=== PATIENT | female | born 2000 | race Caucasian/White ===

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

== ENCOUNTER 2022-11-10 21:06 | Inpatient (IN) ==
[2022-11-10] MEDS ORDERED: SODIUM CHLORIDE 0.9% 1,000 ML IV ONE (21:17)
[2022-11-10] MEDS ORDERED: ACETAMINOPHEN 325 MG TAB PO STA (21:17)
[2022-11-10 22:35] LABS: Appearance Urine Clear (Clear); Bacteria Urine Automated Negative (Negative); Basophils # (auto) 0.04 K/uL (0-0.2); Basophils % (auto) 0.3 %; Bilirubin Urine Negative (Negative); Blood Urine Trace (Negative); Color Urine Yellow; Eosinophils # (auto) 0.01 K/uL (0-0.50); Eosinophils % (auto) 0.1 %; Epithelial Cell Urine Auto >30 /lpf (0-5); Glucose Urine UA Negative (Negative); Hematocrit (blood only) 44.6 % (37.0-47.0); Hemoglobin 15.6 g/dl (12.0-16.0); Immature Granulocytes # (auto) 0.08 K/uL (0.01-0.20); Immature Granulocytes % (auto) 0.5 %; Ketones Urine Trace (Negative); Leukocyte Esterase Urine Negative (Negative); Lymphocytes # (auto) 0.73 K/uL (1.2-3.4); Lymphocytes % (auto) 4.6 %; Mean Corpuscular Hemoglobin 33.5 pg (25.0-34.0); Mean Corpuscular Volume 95.7 fL (80.0-100.0); Mean Platelet Volume 9.7 fL (9.4-12.4); Monocytes # (auto) 0.99 K/uL (0.11-0.59); Monocytes % (auto) 6.3 %; Neutrophils # (auto) 13.98 K/uL (1.40-6.50); Neutrophils % (auto) 88.2 %; Nitrite Urine Negative (Negative); Platelet Count 286 K/uL (130-400); Protein Urine 1+ (Negative); RBC Urine Automated 0-4 /hpf (0-4); RDW Coefficient of Variation 11.4 % (11.5-14.5); Red Blood Count 4.66 M/uL (4.20-5.40); Specific Gravity Urine 1.027 (1.000-1.030); Urobilinogen Urine Negative (Negative); White Blood Count 15.83 K/ul (4.8-10.8); pH Urine 7.5 (4.5-7.5)
[2022-11-10 22:53] LABS: Albumin Globulin Ratio 1.5 (0.9-2); Albumin Level 5.1 gm/dl (3.4-5.0); BUN Creatinine Ratio 10.7 (10-20); Bilirubin,Total 0.5 mg/dl (0.2-1.0); Calcium 10.1 mg/dl (8.5-10.1); Creatinine Clr Calc Pharmacy 100.5 ml/min; Est GFR (Non-African American) 114.7 ml/min; Globulin 3.3 gm/dl (2.5-4.0); Potassium 3.8 mmol/L (3.5-5.1); Total Protein 8.4 gm/dl (6.0-8.3)
[2022-11-10 23:04] LABS: Monotest Negative (Negative); Pregnancy Test, Serum Negative (Negative)
[2022-11-10] MEDS ORDERED: OPTIRAY 320 500ml IV ONE (23:25)
[2022-11-10] MEDS ORDERED: SODIUM CHLORIDE 0.9% 1000ML 1,000 ML IV ONE (23:27)
[2022-11-10 23:55] LABS: Adenovirus PCR Not Detected (NotDetected); Bordetella parapertussis PCR Not Detected (NotDetected); Bordetella pertussis PCR Not Detected (NotDetected); Chlamydia pneumoniae PCR Not Detected (NotDetected); Coronavirus 229E PCR Not Detected (NotDetected); Coronavirus CoV-2 (COVID19)PCR Not Detected (NotDetected); Coronavirus HKU1 PCR Not Detected (NotDetected); Coronavirus NL63 PCR Not Detected (NotDetected); Coronavirus OC43PCR Not Detected (NotDetected); Human Metapneumovirus PCR Not Detected (NotDetected); Influenza A PCR Not Detected (NotDetected); Influenza B PCR Not Detected (NotDetected); Mycoplasma pneumoniae PCR Not Detected (NotDetected); Parainfluenza Virus 1 PCR Not Detected (NotDetected); Parainfluenza Virus 2 PCR Not Detected (NotDetected); Parainfluenza Virus 3 PCR Not Detected (NotDetected); Parainfluenza Virus 4 PCR Not Detected (NotDetected); Respiratory Syncytial VirusPCR Not Detected (NotDetected); Rhinovirus/Enterovirus PCR Not Detected (NotDetected)
--- NOTE | 2022-11-11 00:23 | Emergency Department Note ---
Impression & Plan Fever, Headache, Myalgia ED Provider Note ED Provider Note NAME: ARCADIO ROTHMAN AGE:22 SEX: Female : 2000 ARRIVES VIA: Private vehicle INFORMANT: Patient ED PROVIDER(s): Rossy Couch DO CHIEF COMPLAINT: Fever, headache, myalgias HPI: This is a 22-year-old female presents emergency department complaining of fevers, myalgias, and headache which began yesterday. Patient states headache is frontal and posterior. No history of migraines. No recent trauma or injury. Patient states she has had decreased appetite although no overt vomiting or diarrhea. She states she feels "achy all over". She states she has been trying to take Tylenol and ibuprofen with minimal improvement of symptoms. Patient denies any known sick contacts although states she works around the public daily. Patient denies nasal congestion, rhinorrhea, or cough. She does admit to a mild sore throat. She does admit to chest pain but denies abdominal pain. Denies any rash or sores. Patient states she did take a home COVID test but it was negative. PAST MEDICAL HISTORY:See Below PAST SURGICAL HISTORY:See Below FAMILY HISTORY:See Below SOCIAL HISTORY:See Below HOME MEDICATIONS:See Below ALLERGIES:See Below VITALS:See Below PHYSICAL EXAMINATION: GENERAL: alert, unwell appearing, well nourished, no distress, non-toxic EYE EXAM: normal conjunctiva, PERRL and EOM's grossly intact, no nystagmus OROPHARYNX: no exudate, no erythema, lips, buccal mucosa, and tongue normal and mucous membranes are moist NECK: supple, no nuchal rigidity, no adenopathy, non-tender, FROM LUNGS: Clear to auscultation. Normal chest wall mechanics, no w/r/r HEART: no murmurs, S1 normal and S2 normal ABDOMEN: abdomen soft, non-tender, normo-active bowel sounds, no masses, no rebound or guarding. BACK: Back is symmetrical on inspection and there is no deformity, no midline tenderness, no CVA tenderness. SKIN: no rashes, petechiae, orbruising UPPER EXTREMITIES: upper extremities are grossly normal. FROM, nml pulses b/l. LOWER EXTREMITIES: No pitting edema. FROM, nml pulses b/l. NEURO EXAM: Normal sensorium, cranial nerves II-XII grossly intact, normal speech, no facial droop,nogross weakness of arms, no gross weakness of legs. Gross sensation intact. No ataxia. Vital Signs: reviewed and remarkable Differential Diagnosis: Viral syndrome, strep pharyngitis, tonsillitis, mononucleosis, meningitis, sinusitis, bronchitis, pneumonia, as well as other pathologies. MEDICAL DECISION MAKING: This is a 22-year-old female presents emergency department due to concern for fever, headache, myalgias. Patient was noted to be febrile and tacky on arrival. She was ill-appearing at bedside. Labs drawn and sent, IV established, patient started on IV fluids. She was given Tylenol by nursing staff just prior to my evaluation. Additional medications added. Patient received several liters of IV fluids while in the emergency room. Patient's labs are reassuring, nasal swab negative, UA unremarkable, strep swab negative. We did discuss given constellation of symptoms possible evaluation for meningitis/encephalitis with LP. After discussion at bedside, patient signed consent form and wished to proceed with the procedure. Please see procedure note for additional details. CSF was reassuring. Patient with persistent headache and myalgias despite multiple doses of pain medication and multiple liters of IV fluids. Due to persistent symptoms we did discuss options for disposition. Case discussed with hospitalist for additional evaluation and management including treatment of her headache. Patient has no contributory family history. Patient was first seen and observation began at 2114 and was necessary in order to evaluate symptoms and etiology of complaints, provide multiple liters of IV fluids and multiple doses of pain and nausea medication. Upon re-evaluation, 6 hours of observation revealed that the patient should be admitted. Discharge from observation at 0430. Consultation(s): 0428: Discussed with Dr. Zamora. ER Treatment Provided: See below 0102: After discussion of results and patient's persistent symptoms, we did discuss lumbar puncture. After discussion of risk versus benefits, patient in agreement and would like to proceed with procedure. Consent form signed at bedside. Diagnostics Interpreted By Me: -ECG: Sinus tachycardia at 115, normal axis, normal QRS and QTc, no acute ST/T wave changes -Cardiac Monitoring: An order was placed for continuous cardiac monitoring. The monitor shows a rate of 102 with sinus tachycardia rhythm. -Laboratory studies: As stated above and show below. -Imaging studies: [] Triage Nursing Note Reviewed Prior/Outside Records Reviewed Procedures: PRIOR TO PROCEDURE: The patient was evaluated prior to the procedure. The patient was identified and the procedure verified as lumbar puncture. A Time Out was held and the following information confirmed. Verify Correct Patient: Yes Verify Correct Site: Yes Verify Correct Procedure: Yes Verify Correct Position: Yes Indication: SAH/meningitis Discussion was held with the patient concerning lumbar puncture. The risks and benefits were explained with possible risks to include local back pain, headache, bleeding, infection, neurological sequelea (herniation and/or paralysis), and tract formation/subarachnoid epidermal cyst. The patient signed consent form. PROCEDURE NOTE: Patient was placed in the sitting position with hips, knees and neck flexed. Landmarks identified. Patient prepped and draped in usual sterile fashion. Skin anesthetized with 1% lidocaine. Lumbar puncture performed using a 3.5inch 22 gauge needle with stylet. Atraumatic tap was obtained on the 1st attempt. Opening pressure was not performed. Approximately 4 milliliters of clear fluid were removed in usual manner without any problems. Closing pressure was not recorded. Stylet replaced and needle withdrawn. CSF was sent to lab for analysis. Patient tolerated the procedure well. The patient was provided with written and verbal instructions. 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 Beliefs That Will Affect Care: None Current Living Situation: Family Other Information That Helps Us Care for You: No Feels Safe at Home: Yes Safety Concerns: Feels Safe At This Time Assistive Devices: Hearing Aid - Bilateral Allergies Allergies Allergy/AdvReac Type Severity Reaction Status Date / Time amoxicillin [From Augmentin] Allergy Intermediate rash, Verified 11/10/22 23:13 tongue swelling, it was "hard to breathe" clavulanic acid Allergy Intermediate rash, Verified 11/10/22 23:13 [From Augmentin] tongue swelling, it was "hard to breathe" Penicillins Allergy Intermediate Hives Verified 11/10/22 23:13 sulfamethoxazole Allergy Intermediate Rash Verified 11/10/22 23:13 [From Bactrim] trimethoprim [From Bactrim] Allergy Intermediate Rash Verified 11/10/22 23:13 Home Meds Home Medications Medication Instructions Recorded Confirmed norethindrone (contraceptive) 0.35 0.35 mg PO DAILY 11/10/22 11/10/22 mg tablet Results & Data (ED) Vital Signs Vital Signs - 24 hr 11/11/22 04:36 Pulse Rate [Right Finger] 77 Respiratory Rate 16 Blood Pressure [Right Arm] 125/79 Blood Pressure Mean [Right Arm] 94 Pulse Oximetry 99 Laboratory Data 11/10/22 22:10 11/10/22 22:10 Lab Results 11/10/22 11/10/22 11/10/22 Range/Units 22:10 22:10 22:10 WBC 15.83 H (4.8-10.8) K/ul RBC 4.66 (4.20-5.40) M/uL Hgb 15.6 (12.0-16.0) g/dl Hct 44.6 (37.0-47.0) % MCV 95.7 (80.0-100.0) fL MCH 33.5 (25.0-34.0) pg MCHC 35.0 (32.0-36.0) g/dL RDW Std Deviation 40.0 (36.4-46.3) fL RDW Coeff of Sade 11.4 L (11.5-14.5) % Plt Count 286 (130-400) K/uL MPV 9.7 (9.4-12.4) fL Immature Gran % (Auto) 0.5 % Neut % (Auto) 88.2 % Lymph % (Auto) 4.6 % [place] % (Auto) 6.3 % Eos % (Auto) 0.1 % Baso % (Auto) 0.3 % Neut # (Auto) 13.98 H (1.40-6.50) K/uL Lymph # (Auto) 0.73 L (1.2-3.4) K/uL [place] # (Auto) 0.99 H (0.11-0.59) K/uL Eos # (Auto) 0.01 (0-0.50) K/uL Baso # (Auto) 0.04 (0-0.2) K/uL Immature Gran # (Auto) 0.08 (0.01-0.20) K/uL Sodium 136 (136-145) mmol/L Potassium 3.8 (3.5-5.1) mmol/L Chloride 103 (98-107) mmol/L Carbon Dioxide 26 (21-32) mmol/L Anion Gap 7 (3-11) BUN 8 (6-23) mg/dl Creatinine 0.75 (0.6-1.2) mg/dl Est Cr Clr Drug Dosing 100.5 ml/min Est GFR ( Amer) 133.0 ml/min Est GFR (Non-Af Amer) 114.7 ml/min BUN/Creatinine Ratio 10.7 (10-20) Glucose 106 H (70-99(Fasting)) mg/dl Calcium 10.1 (8.5-10.1) mg/dl Total Bilirubin 0.5 (0.2-1.0) mg/dl AST 17 (13-39) U/L ALT 11 (7-52) U/L Alkaline Phosphatase 73 (34-104) U/L Total Creatine Kinase 38 (26-192) U/L Total Protein 8.4 H (6.0-8.3) gm/dl Albumin 5.1 H (3.4-5.0) gm/dl Globulin 3.3 (2.5-4.0) gm/dl Albumin/Globulin Ratio 1.5 (0.9-2) Procalcitonin (0-0.5) ng/ml HCG, Qual (Negative) Urine Color Yellow Urine Appearance Clear (Clear) Urine pH 7.5 (4.5-7.5) Ur Specific Hope 1.027 (1.000-1.030) Urine Protein 1+ H (Negative) Urine Glucose (UA) Negative (Negative) Urine Ketones Trace H (Negative) Urine Blood Trace H (Negative) Urine Nitrite Negative (Negative) Urine Bilirubin Negative (Negative) Urine Urobilinogen Negative (Negative) Ur Leukocyte Esterase Negative (Negative) Urine WBC (Auto) 1-5 (0-5) /hpf Urine RBC (Auto) 0-4 (0-4) /hpf U Hyaline Cast (Auto) 1-5 (0-5) /lpf U Epithel Cells (Auto) >30 H (0-5) /lpf Urine Bacteria (Auto) Negative (Negative) Fluid Comment CSF Appearance CSF Color Xanthrochromic CSF WBC (0-5) CSF RBC (0-) CSF Cell Count Tube # CSF Mononuclear WBCs % % CSF Polynuclear WBCs % % CSF Chemistry Tube # CSF Glucose (40-70) mg/dl CSF Total Protein (15-45) mg/dl CSF C.neoform/gat PCR (NotDetected) CSF CMV DNA (PCR) (NotDetected) CSF Enterovirus (PCR) (NotDetected) CSF E. coli K1 (PCR) (NotDetected) CSF H. influenzae (PCR) (NotDetected) CSF HSV I (PCR) (NotDetected) CSF HSV II (PCR) (NotDetected) CSF HHV 6 (PCR) (NotDetected) CSF L.monocytogenes PCR (NotDetected) CSF N. meningitidis PCR (NotDetected) CSF Parechovirus (PCR) (NotDetected) CSF S. agalactiae (PCR) (NotDetected) CSF S. pneumoniae (PCR) (NotDetected) CSF VZV DNA (PCR) (NotDetected) Adenovirus (PCR) (NotDetected) B. pertussis DNA (PCR) (NotDetected) B.parapertussis DNA PCR (NotDetected) C. pneumoniae DNA (PCR) (NotDetected) Coronavirus OC43 (PCR) (NotDetected) Coronavirus HKU1 (PCR) (NotDetected) Coronavirus 229E (PCR) (NotDetected) SARS-CoV-2 (PCR) (NotDetected) Coronavirus NL63 (PCR) (NotDetected) Monoscreen (Negative) Human Metapneumovir PCR (NotDetected) Influenza Type A (PCR) (NotDetected) Influenza Type B (PCR) (NotDetected) M. pneumoniae (PCR) (NotDetected) Parainfluenza 1 (PCR) (NotDetected) Parainfluenza 2 (PCR) (NotDetected) Parainfluenza 3 (PCR) (NotDetected) Parainfluenza 4 (PCR) (NotDetected) RSV (PCR) (NotDetected) Entero/Rhino (PCR) (NotDetected) Group A Strep (PCR) (NotDetected) 11/10/22 11/10/22 11/10/22 Range/Units 22:10 22:10 22:47 WBC (4.8-10.8) K/ul RBC (4.20-5.40) M/uL Hgb (12.0-16.0) g/dl Hct (37.0-47.0) % MCV (80.0-100.0) fL MCH (25.0-34.0) pg MCHC (32.0-36.0) g/dL RDW Std Deviation (36.4-46.3) fL RDW Coeff of Sade (11.5-14.5) % Plt Count (130-400) K/uL MPV (9.4-12.4) fL Immature Gran % (Auto) % Neut % (Auto) % Lymph % (Auto) % [place] % (Auto) % Eos % (Auto) % Baso % (Auto) % Neut # (Auto) (1.40-6.50) K/uL Lymph # (Auto) (1.2-3.4) K/uL [place] # (Auto) (0.11-0.59) K/uL Eos # (Auto) (0-0.50) K/uL Baso # (Auto) (0-0.2) K/uL Immature Gran # (Auto) (0.01-0.20) K/uL Sodium (136-145) mmol/L Potassium (3.5-5.1) mmol/L Chloride (98-107) mmol/L Carbon Dioxide (21-32) mmol/L Anion Gap (3-11) BUN (6-23) mg/dl Creatinine (0.6-1.2) mg/dl Est Cr Clr Drug Dosing ml/min Est GFR ( Amer) ml/min Est GFR (Non-Af Amer) ml/min BUN/Creatinine Ratio (10-20) Glucose (70-99(Fasting)) mg/dl Calcium (8.5-10.1) mg/dl Total Bilirubin (0.2-1.0) mg/dl AST (13-39) U/L ALT (7-52) U/L Alkaline Phosphatase (34-104) U/L Total Creatine Kinase (26-192) U/L Total Protein (6.0-8.3) gm/dl Albumin (3.4-5.0) gm/dl Globulin (2.5-4.0) gm/dl Albumin/Globulin Ratio (0.9-2) Procalcitonin 0.13 (0-0.5) ng/ml HCG, Qual Negative (Negative) Urine Color Urine Appearance (Clear) Urine pH (4.5-7.5) Ur Specific Hope (1.000-1.030) Urine Protein (Negative) Urine Glucose (UA) (Negative) Urine Ketones (Negative) Urine Blood (Negative) Urine Nitrite (Negative) Urine Bilirubin (Negative) Urine Urobilinogen (Negative) Ur Leukocyte Esterase (Negative) Urine WBC (Auto) (0-5) /hpf Urine RBC (Auto) (0-4) /hpf U Hyaline Cast (Auto) (0-5) /lpf U Epithel Cells (Auto) (0-5) /lpf Urine Bacteria (Auto) (Negative) Fluid Comment CSF Appearance CSF Color Xanthrochromic CSF WBC (0-5) CSF RBC (0-) CSF Cell Count Tube # CSF Mononuclear WBCs % % CSF Polynuclear WBCs % % CSF Chemistry Tube # CSF Glucose (40-70) mg/dl CSF Total Protein (15-45) mg/dl CSF C.neoform/gat PCR (NotDetected) CSF CMV DNA (PCR) (NotDetected) CSF Enterovirus (PCR) (NotDetected) CSF E. coli K1 (PCR) (NotDetected) CSF H. influenzae (PCR) (NotDetected) CSF HSV I (PCR) (NotDetected) CSF HSV II (PCR) (NotDetected) CSF HHV 6 (PCR) (NotDetected) CSF L.monocytogenes PCR (NotDetected) CSF N. meningitidis PCR (NotDetected) CSF Parechovirus (PCR) (NotDetected) CSF S. agalactiae (PCR) (NotDetected) CSF S. pneumoniae (PCR) (NotDetected) CSF VZV DNA (PCR) (NotDetected) Adenovirus (PCR) Not Detected (NotDetected) B. pertussis DNA (PCR) Not Detected (NotDetected) B.parapertussis DNA PCR Not Detected (NotDetected) C. pneumoniae DNA (PCR) Not Detected (NotDetected) Coronavirus OC43 (PCR) Not Detected (NotDetected) Coronavirus HKU1 (PCR) Not Detected (NotDetected) Coronavirus 229E (PCR) Not Detected (NotDetected) SARS-CoV-2 (PCR) Not Detected (NotDetected) Coronavirus NL63 (PCR) Not Detected (NotDetected) Monoscreen Negative (Negative) Human Metapneumovir PCR Not Detected (NotDetected) Influenza Type A (PCR) Not Detected (NotDetected) Influenza Type B (PCR) Not Detected (NotDetected) M. pneumoniae (PCR) Not Detected (NotDetected) Parainfluenza 1 (PCR) Not Detected (NotDetected) Parainfluenza 2 (PCR) Not Detected (NotDetected) Parainfluenza 3 (PCR) Not Detected (NotDetected) Parainfluenza 4 (PCR) Not Detected (NotDetected) RSV (PCR) Not Detected (NotDetected) Entero/Rhino (PCR) Not Detected (NotDetected) Group A Strep (PCR) (NotDetected) 11/11/22 11/11/22 11/11/22 Range/Units 01:40 01:40 01:40 WBC (4.8-10.8) K/ul RBC (4.20-5.40) M/uL Hgb (12.0-16.0) g/dl Hct (37.0-47.0) % MCV (80.0-100.0) fL MCH (25.0-34.0) pg MCHC (32.0-36.0) g/dL RDW Std Deviation (36.4-46.3) fL RDW Coeff of Sade (11.5-14.5) % Plt Count (130-400) K/uL MPV (9.4-12.4) fL Immature Gran % (Auto) % Neut % (Auto) % Lymph % (Auto) % [place] % (Auto) % Eos % (Auto) % Baso % (Auto) % Neut # (Auto) (1.40-6.50) K/uL Lymph # (Auto) (1.2-3.4) K/uL [place] # (Auto) (0.11-0.59) K/uL Eos # (Auto) (0-0.50) K/uL Baso # (Auto) (0-0.2) K/uL Immature Gran # (Auto) (0.01-0.20) K/uL Sodium (136-145) mmol/L Potassium (3.5-5.1) mmol/L Chloride (98-107) mmol/L Carbon Dioxide (21-32) mmol/L Anion Gap (3-11) BUN (6-23) mg/dl Creatinine (0.6-1.2) mg/dl Est Cr Clr Drug Dosing ml/min Est GFR ( Amer) ml/min Est GFR (Non-Af Amer) ml/min BUN/Creatinine Ratio (10-20) Glucose (70-99(Fasting)) mg/dl Calcium (8.5-10.1) mg/dl Total Bilirubin (0.2-1.0) mg/dl AST (13-39) U/L ALT (7-52) U/L Alkaline Phosphatase (34-104) U/L Total Creatine Kinase (26-192) U/L Total Protein (6.0-8.3) gm/dl Albumin (3.4-5.0) gm/dl Globulin (2.5-4.0) gm/dl Albumin/Globulin Ratio (0.9-2) Procalcitonin (0-0.5) ng/ml HCG, Qual (Negative) Urine Color Urine Appearance (Clear) Urine pH (4.5-7.5) Ur Specific Hope (1.000-1.030) Urine Protein (Negative) Urine Glucose (UA) (Negative) Urine Ketones (Negative) Urine Blood (Negative) Urine Nitrite (Negative) Urine Bilirubin (Negative) Urine Urobilinogen (Negative) Ur Leukocyte Esterase (Negative) Urine WBC (Auto) (0-5) /hpf Urine RBC (Auto) (0-4) /hpf U Hyaline Cast (Auto) (0-5) /lpf U Epithel Cells (Auto) (0-5) /lpf Urine Bacteria (Auto) (Negative) Fluid Comment CSF Appearance Clear CSF Color Colorless Xanthrochromic No xanthochromia CSF WBC 0 (0-5) CSF RBC 0 (0-) CSF Cell Count Tube # 3 CSF Mononuclear WBCs % % CSF Polynuclear WBCs % % CSF Chemistry Tube # 1 CSF Glucose 73 H (40-70) mg/dl CSF Total Protein 26.8 (15-45) mg/dl CSF C.neoform/gat PCR Not Detected (NotDetected) CSF CMV DNA (PCR) Not Detected (NotDetected) CSF Enterovirus (PCR) Not Detected (NotDetected) CSF E. coli K1 (PCR) Not Detected (NotDetected) CSF H. influenzae (PCR) Not Detected (NotDetected) CSF HSV I (PCR) Not Detected (NotDetected) CSF HSV II (PCR) Not Detected (NotDetected) CSF HHV 6 (PCR) Not Detected (NotDetected) CSF L.monocytogenes PCR Not Detected (NotDetected) CSF N. meningitidis PCR Not Detected (NotDetected) CSF Parechovirus (PCR) Not Detected (NotDetected) CSF S. agalactiae (PCR) Not Detected (NotDetected) CSF S. pneumoniae (PCR) Not Detected (NotDetected) CSF VZV DNA (PCR) Not Detected (NotDetected) Adenovirus (PCR) (NotDetected) B. pertussis DNA (PCR) (NotDetected) B.parapertussis DNA PCR (NotDetected) C. pneumoniae DNA (PCR) (NotDetected) Coronavirus OC43 (PCR) (NotDetected) Coronavirus HKU1 (PCR) (NotDetected) Coronavirus 229E (PCR) (NotDetected) SARS-CoV-2 (PCR) (NotDetected) Coronavirus NL63 (PCR) (NotDetected) Monoscreen (Negative) Human Metapneumovir PCR (NotDetected) Influenza Type A (PCR) (NotDetected) Influenza Type B (PCR) (NotDetected) M. pneumoniae (PCR) (NotDetected) Parainfluenza 1 (PCR) (NotDetected) Parainfluenza 2 (PCR) (NotDetected) Parainfluenza 3 (PCR) (NotDetected) Parainfluenza 4 (PCR) (NotDetected) RSV (PCR) (NotDetected) Entero/Rhino (PCR) (NotDetected) Group A Strep (PCR) (NotDetected) 11/11/22 Range/Units 03:25 WBC (4.8-10.8) K/ul RBC (4.20-5.40) M/uL Hgb (12.0-16.0) g/dl Hct (37.0-47.0) % MCV (80.0-100.0) fL MCH (25.0-34.0) pg MCHC (32.0-36.0) g/dL RDW Std Deviation (36.4-46.3) fL RDW Coeff of Sade (11.5-14.5) % Plt Count (130-400) K/uL MPV (9.4-12.4) fL Immature Gran % (Auto) % Neut % (Auto) % Lymph % (Auto) % [place] % (Auto) % Eos % (Auto) % Baso % (Auto) % Neut # (Auto) (1.40-6.50) K/uL Lymph # (Auto) (1.2-3.4) K/uL [place] # (Auto) (0.11-0.59) K/uL Eos # (Auto) (0-0.50) K/uL Baso # (Auto) (0-0.2) K/uL Immature Gran # (Auto) (0.01-0.20) K/uL Sodium (136-145) mmol/L Potassium (3.5-5.1) mmol/L Chloride (98-107) mmol/L Carbon Dioxide (21-32) mmol/L Anion Gap (3-11) BUN (6-23) mg/dl Creatinine (0.6-1.2) mg/dl Est Cr Clr Drug Dosing ml/min Est GFR ( Amer) ml/min Est GFR (Non-Af Amer) ml/min BUN/Creatinine Ratio (10-20) Glucose (70-99(Fasting)) mg/dl Calcium (8.5-10.1) mg/dl Total Bilirubin (0.2-1.0) mg/dl AST (13-39) U/L ALT (7-52) U/L Alkaline Phosphatase (34-104) U/L Total Creatine Kinase (26-192) U/L Total Protein (6.0-8.3) gm/dl Albumin (3.4-5.0) gm/dl Globulin (2.5-4.0) gm/dl Albumin/Globulin Ratio (0.9-2) Procalcitonin (0-0.5) ng/ml HCG, Qual (Negative) Urine Color Urine Appearance (Clear) Urine pH (4.5-7.5) Ur Specific Hope (1.000-1.030) Urine Protein (Negative) Urine Glucose (UA) (Negative) Urine Ketones (Negative) Urine Blood (Negative) Urine Nitrite (Negative) Urine Bilirubin (Negative) Urine Urobilinogen (Negative) Ur Leukocyte Esterase (Negative) Urine WBC (Auto) (0-5) /hpf Urine RBC (Auto) (0-4) /hpf U Hyaline Cast (Auto) (0-5) /lpf U Epithel Cells (Auto) (0-5) /lpf Urine Bacteria (Auto) (Negative) Fluid Comment CSF Appearance CSF Color Xanthrochromic CSF WBC (0-5) CSF RBC (0-) CSF Cell Count Tube # CSF Mononuclear WBCs % % CSF Polynuclear WBCs % % CSF Chemistry Tube # CSF Glucose (40-70) mg/dl CSF Total Protein (15-45) mg/dl CSF C.neoform/gat PCR (NotDetected) CSF CMV DNA (PCR) (NotDetected) CSF Enterovirus (PCR) (NotDetected) CSF E. coli K1 (PCR) (NotDetected) CSF H. influenzae (PCR) (NotDetected) CSF HSV I (PCR) (NotDetected) CSF HSV II (PCR) (NotDetected) CSF HHV 6 (PCR) (NotDetected) CSF L.monocytogenes PCR (NotDetected) CSF N. meningitidis PCR (NotDetected) CSF Parechovirus (PCR) (NotDetected) CSF S. agalactiae (PCR) (NotDetected) CSF S. pneumoniae (PCR) (NotDetected) CSF VZV DNA (PCR) (NotDetected) Adenovirus (PCR) (NotDetected) B. pertussis DNA (PCR) (NotDetected) B.parapertussis DNA PCR (NotDetected) C. pneumoniae DNA (PCR) (NotDetected) Coronavirus OC43 (PCR) (NotDetected) Coronavirus HKU1 (PCR) (NotDetected) Coronavirus 229E (PCR) (NotDetected) SARS-CoV-2 (PCR) (NotDetected) Coronavirus NL63 (PCR) (NotDetected) Monoscreen (Negative) Human Metapneumovir PCR (NotDetected) Influenza Type A (PCR) (NotDetected) Influenza Type B (PCR) (NotDetected) M. pneumoniae (PCR) (NotDetected) Parainfluenza 1 (PCR) (NotDetected) Parainfluenza 2 (PCR) (NotDetected) Parainfluenza 3 (PCR) (NotDetected) Parainfluenza 4 (PCR) (NotDetected) RSV (PCR) (NotDetected) Entero/Rhino (PCR) (NotDetected) Group A Strep (PCR) NOT DETECTED (NotDetected) Administered Medications Acetaminophen (Acetaminophen 325 Mg Tab) 650 mg PO Q4H PRN PRN Reason: pain/fever Stop: 12/11/22 06:31 Last Admin: 11/11/22 15:48 Dose: 650 mg Documented By: KEEGAN Sodium Chloride (Nss 1000ml) 1,000 mls @ 100 mls/hr IV .Q10H ROSETTA Stop: 12/11/22 06:31 Last Admin: 11/12/22 00:41 Dose: 100 mls/hr Documented By: Infusion: 11/12/22 00:41 Dose: 100 mls/hr Documented By: Admin: 11/11/22 15:48 Dose: 100 mls/hr Documented By: Infusion: 11/11/22 15:47 Dose: 0 mls/hr Documented By: Admin: 11/11/22 07:32 Dose: 100 mls/hr Documented By: DANY Discontinued Medications Acetaminophen (Acetaminophen 325 Mg Tab) 650 mg PO NOW STA Stop: 11/10/22 21:18 Last Admin: 11/10/22 22:00 Dose: 650 mg Documented By: CLEMENTE Dexamethasone Sodium Phosphate (DexamethasonePf 10 Mg/Ml Vial) 10 mg IV NOW ONE Stop: 11/11/22 03:40 Last Admin: 11/11/22 03:49 Dose: 10 mg Documented By: OSWALDO Diphenhydramine HCl (Diphenhydramine 50 Mg/Ml Vial) 12.5 mg IV NOW STA Stop: 11/11/22 04:21 Last Admin: 11/11/22 04:28 Dose: 12.5 mg Documented By: OSWALDO Sodium Chloride (Nss) 1,000 mls @ 999 mls/hr IV .Q1H1M ONE Stop: 11/10/22 22:17 Last Infusion: 11/10/22 23:36 Dose: 0 mls/hr Documented By: Admin: 11/10/22 22:30 Dose: 999 mls/hr Documented By: MIS Sodium Chloride (Nss 1000ml) 1,000 mls @ 999 mls/hr IV .Q1H1M ONE Stop: 11/11/22 00:27 Last Infusion: 11/11/22 00:52 Dose: 0 mls/hr Documented By: Admin: 11/10/22 23:38 Dose: 999 mls/hr Documented By: OSWALDO Sodium Chloride (Nss 1000ml) 1,000 mls @ 125 mls/hr IV .Q8H ROSETTA Stop: 12/11/22 02:44 Last Infusion: 11/11/22 07:32 Dose: 0 mls/hr Documented By: Admin: 11/11/22 02:47 Dose: 125 mls/hr Documented By: OSWALDO Acetaminophen (Ofirmev) 1,000 mg in 100 mls @ 400 mls/hr IV NOW STA Stop: 11/11/22 02:58 Last Infusion: 11/11/22 03:07 Dose: 0 mls/hr Documented By: Admin: 11/11/22 02:47 Dose: 400 mls/hr Documented By: OSWALDO Magnesium Sulfate/Dextrose (Magnesium Sulfate / D5w) 1 gm in 100 mls @ 100 mls/hr IV NOW STA Stop: 11/11/22 04:38 Last Infusion: 11/11/22 04:51 Dose: 0 mls/hr Documented By: Admin: 11/11/22 03:49 Dose: 100 mls/hr Documented By: OSWALDO Prochlorperazine (Compazine) 1 mls @ 1 mls/min IV ONE ONE Stop: 11/11/22 04:21 Last Admin: 11/11/22 04:29 Dose: 1 mls/min Documented By: OSWALDO Ioversol (Optiray 320 500ml) 113 ml IV ONCE ONE Stop: 11/10/22 23:26 Last Admin: 11/10/22 23:26 Dose: 113 ml Documented By: RACHAEL Ketorolac Tromethamine (Ketorolac Tromethamine 15 Mg/Ml Vial) 10 mg IV NOW ONE Stop: 11/11/22 00:29 Last Admin: 11/11/22 00:37 Dose: 10 mg Documented By: OSWALDO Lidocaine/Epinephrine (Lidocaine 1%/Epinephrine 1:100,000 50 Ml Vial) 20 ml INFIL NOW ONE Stop: 11/11/22 01:02 Last Admin: 11/11/22 01:48 Dose: 20 ml Documented By: GURJIT Morphine Sulfate (Morphine Sulfate 2 Mg/Ml Carp) 2 mg IV NOW STA Stop: 11/11/22 04:21 Last Admin: 11/11/22 04:28 Dose: 2 mg Documented By: OSWALDO Imaging Data Radiologist's Impression: CTA head: No intracranial aneurysm. No large vessel stenosis or occlusion. Radiologist: Yeyo Calderon MD CT Head: No ICH, mass effect or edema. No evidence of acute cortical stroke. Visualized sinuses and mastoid air cells are clear. Radiologist: Yeyo Calderon MD CTA Neck: No evidence for carotid or vertebral artery stenosis, dissection or occlusion. The tonsillar pillars demonstrated striated enhancement appearance compatible with tonsillitis and clinical correlation is recommended. Radiologist: Yeyo Calderon MD Discharge Plan Visit Data Chief Complaint: Flu Like Symptoms Stated Complaint: HIGH FEVER,BODYACHES,HEADACHE,SORE THROAT,LETHARGI ED Provider: Rossy Couch Discharge Problem: Fever, Headache, Myalgia Patient Disposition: Admitted As Inpatient Discharge Instructions Interventions: ED Discharge Assessment Last Done: 11/11/22 06:38
[2022-11-11] MEDS ORDERED: KETOROLAC TROMETHAMINE 15 MG/ML VIAL IV ONE (00:28)
[2022-11-11] MEDS ORDERED: LIDOCAINE 1%/EPINEPHRINE 1:100,000 50 ML VIAL INFIL ONE (01:01)
[2022-11-11 02:32] LABS: Total Protein CSF 26.8 mg/dl (15-45)
[2022-11-11] MEDS ORDERED: ACETAMINOPHEN 1,000 MG/100 ML VIAL IV STA (02:44)
[2022-11-11] MEDS ORDERED: SODIUM CHLORIDE 0.9% 1000ML 1,000 ML IV SCH (02:45)
[2022-11-11 02:46] LABS: Appearance CSF Clear; CSF Count Tube # 3; CSF Xanthrochromic No xanthochromia; Color CSF Colorless
[2022-11-11] MEDS ORDERED: dexAMETHasone**PF** 10 MG/ML VIAL IV ONE (03:39)
[2022-11-11] MEDS ORDERED: MAGNESIUM SULFATE / D5W 1 GM/100 ML BAG IV STA (03:39)
[2022-11-11 03:49] LABS: Cryptococcus neoformans/ga PCR Not Detected (NotDetected); Cytomegalovirus PCR Not Detected (NotDetected); Enterovirus PCR Not Detected (NotDetected); Escherichia coli K1 PCR Not Detected (NotDetected); Haemophilius influenzae PCR Not Detected (NotDetected); Herpes Simplex Virus 1 PCR Not Detected (NotDetected); Herpes Simplex Virus 2 PCR Not Detected (NotDetected); Human Herpes Virus 6 PCR Not Detected (NotDetected); Human Parechovirus PCR Not Detected (NotDetected); Listeria monocytogenes PCR Not Detected (NotDetected); Neisseria meningitidis PCR Not Detected (NotDetected); Streptococcus agalactiae PCR Not Detected (NotDetected); Streptococcus pneumoniae PCR Not Detected (NotDetected); Varicella Zoster Virus PCR Not Detected (NotDetected)
[2022-11-11] MEDS ORDERED: MoRPHine SULFATE 2 MG/ML CARP IV STA (04:20)
[2022-11-11] MEDS ORDERED: PROCHLORPERAZINE 1 ML IV ONE (04:20)
[2022-11-11] MEDS ORDERED: diphenhydrAMINE 50 MG/ML VIAL IV STA (04:20)
[2022-11-11] MEDS ORDERED: KETOROLAC TROMETHAMINE 15 MG/ML VIAL IV PRN (06:32)
[2022-11-11] MEDS: SODIUM CHLORIDE 0.9% 1000ML 1,000 ML IV SCH ×2 (07:32→15:48)
--- NOTE | 2022-11-11 07:36 | CT Scan Report ---
CT OF THE HEAD WITHOUT CONTRAST CLINICAL HISTORY: Severe headache. COMPARISON STUDY: Head CT February 27, 2019. TECHNIQUE: Helical axial images of the head were obtained without IV contrast. Automated exposure con trol was utilized for the study. A dose lowering technique was utilized adhering to the principles o f ALARA. FINDINGS: No acute intracranial hemorrhage, midline shift or mass effect is present. The ventricular system is unremarkable. The basal cisterns are patent. No extra-axial collections are present. There are no findings to suggest acute dural sinus thrombosis or acute territorial infarct. No significant calvarial abnormalities are present. Visualized portions of the sinuses and mastoid air cells are natalie ar. The adenoids are prominent. IMPRESSION: No acute intracranial findings. ACT 112: Negative or not required by law. Electronically signed by: Shahram Gonzales M.D. 11/11/2022 7:35 AM
--- NOTE | 2022-11-11 07:51 | CT Scan Report ---
CTA ANGIOGRAPHY OF THE HEAD CLINICAL HISTORY: Severe headache. COMPARISON STUDY: Head CT February 27, 2019. TECHNIQUE: Helical axial images of the head were obtained following uneventful intravenous administr ation of 113 cc of Optiray. Sagittal and coronal reconstructions were viewed as well as maximal inten sity projections on an independent 3-D workstation. Automated exposure control was utilized for the study. A dose lowering technique was utilized adhering to the principles of ALARA. CT DOSE: 1043.94 mGy.cm FINDINGS: Brain volume is normal. Ventricular system is normal. No acute intracranial hemorrhage is i dentified. The bilateral M1, M2, A1 and A2 segments are patent. There is no central vessel occlusion. There is no intracranial aneurysm. Posterior circulation is also intact. The major dural sinuses are patent. IMPRESSION: Unremarkable CTA of the head. No aneurysm. No central vessel occlusion. ACT 112: Negative or not required by law. Electronically signed by: Shahram Gonzales M.D. 11/11/2022 7:49 AM
--- NOTE | 2022-11-11 08:13 | History and Physical Report ---
DATE OF ADMISSION: 11/11/2022. CHIEF COMPLAINT: Severe headache and fever. HISTORY OF PRESENT ILLNESS: A 22-year-old female with past medical history significant for nausea, history of migraines, cystic fibrosis carrier, having fevers and headache in the front and back of the head since yesterday, she has body aches. That is the reason she came here. Light is not bothering her, but sound is bothering her. Hemodynamically stable. In the ER, she had a temperature spike of 38.8 and received Decadron, Toradol, morphine, Compazine, Tylenol, Benadryl, magnesium, and fluids in the ER. Still the headache is about 4/10 in severity. Currently, afebrile and hemodynamically stable. Denies any cough, no nausea, no vomiting, no chest pain, no shortness of breath, no abdominal pain. Normal bowel and bladder movements. No rash, no blurred visions, no earache, no runny nose. Denies any sore throat. No difficulty swallowing. Appetite is okay. Her white count was 15. She had extensive workup with respiratory BioFire which was unremarkable. Urinalysis was negative. She had CTA of the head and neck and CT of the head, which were unremarkable except for possible tonsillitis and she also had lumbar puncture, which showed a glucose of 73, rest was unremarkable. CSF Lyme studies are still pending. She also had Lyme screen, which is also pending. Currently, resting comfortably and hemodynamically stable.Mother in room. ALLERGIES: AUGMENTIN, BACTRIM. PAST MEDICAL HISTORY: As mentioned above. PAST SURGICAL HISTORY: No surgeries on file. SOCIAL HISTORY: Single. No smoking, no alcohol, no drug use. MEDICATIONS: On contraceptive pills. FAMILY HISTORY: Significant for paternal grandfather with diabetes; maternal grandfather had heart attack. REVIEW OF SYSTEMS: As per HPI. Rest of review of systems is negative. PHYSICAL EXAMINATION: GENERAL: The patient is thin and frail, not in acute distress. VITAL SIGNS: Temperature T-max 38.8, pulse 77, respiratory rate 16, blood pressure 125/79, oxygen 99% on room air. HEENT: Pupils equal, round and reactive to light. Oral mucosa moist. white streaks seen on the tonsils. NECK: No neck masses seen. CARDIOVASCULAR: S1 and S2 heard. Regular rate and rhythm. No murmur, no gallop. RESPIRATORY SYSTEM: Normal AP diameter. No accessory muscle use. No wheezing or crackles. ABDOMEN: Soft, bowel sounds present, nontender, no distention. CENTRAL NERVOUS SYSTEM: Cranial nerves II-XII grossly intact, nonfocal. EXTREMITIES: No edema, no erythema. LABORATORY DATA: WBC 15, hemoglobin 15.6, hematocrit 44.6, platelets 286. Sodium 136, potassium 3.8, chloride 103, bicarb 26, BUN 8, creatinine 0.7, serum glucose 106, calcium 10.1, total bilirubin 0.5, AST 17, ALT 11, alkaline phosphatase 73, total creatine kinase 38. Procalcitonin 0.13. HCG negative. Urinalysis negative. CSF, glucose is 73, otherwise unremarkable. CSF Lyme screen is pending. Respiratory BioFire negative. IMAGING DATA: CTA of the head and neck, preliminary report is showing possible tonsillitis, otherwise unremarkable study. CT of the head without contrast, no acute findings. EKG: Sinus tachycardia at a rate of 115, no acute ST changes seen. ASSESSMENT AND PLAN: This is a 22-year-old female who presents with fever, severe headaches, and body aches. 1. Fever, headaches, body aches: Could be viral syndrome. Imaging studies, preliminary report is showing possible tonsillitis, but procalcitonin is negative. Monospot and strep throat negative.CSF Lyme screen is pending and also serum Lyme screen also pending. Will follow the studies. Will follow, will give supportive care with fluids. IV Toradol p.r.n. Monitor in the hospital. If not improving or anything shows up on final reports of imaging studies or cultures will consult specialists. 2. Deep venous thrombosis prophylaxis: Sequential compression devices for now. DISPOSITION: Closely monitor in the shopp tele. PT/OT prior to discharge. Social service to help with discharge planning. Level 1 full code. Job ID: [id number] [facility]
--- NOTE | 2022-11-11 08:23 | CT Scan Report ---
NECK CTA HISTORY: severe headache TECHNIQUE: Multiaxial CT images of the neck were performed following the intravenous administration o f contrast to evaluate the major cervical vessels. Maximum intensity projection images were also obta ined. All measurements were calculated based on NASCET criteria. A dose lowering technique was utili zed adhering to the principles of ALARA. COMPARISON STUDY: None. FINDINGS: The aortic arch and proximal great vessels are widely patent. There is no significant sten osis, occlusion, or dissection identified within the bilateral common carotid, internal carotid, or v ertebral arteries. Hypertrophy and heterogeneous enhancement within the adenoid and palatine tonsils with mild upper cervical lymphadenopathy. This may represent a tonsillitis. Hypoplastic distal left v ertebral artery. Duplicated proximal right vertebral artery which joins at the mid cervical spine lev el. IMPRESSION: 1. No significant stenosis, occlusion, or dissection identified within the carotid or vertebral arter ies. 2. Hypertrophy and heterogeneous enhancement within the adenoid and palatine tonsils with mild upper cervical lymphadenopathy. This may represent a tonsillitis. ACT 112: Negative or not required by law. Electronically signed by: Neri Faith M.D. 11/11/2022 8:21 AM
[2022-11-11 08:39] LABS: Lyme Ab IgG w/WB Rflx Negative (Negative); Lyme Ab IgM w/WB Rflx Negative (Negative)
--- NOTE | 2022-11-11 10:15 | Electrocardiogram Report ---
Test Reason : Blood Pressure : / mmHG Vent. Rate : 115 BPM Atrial Rate : 115 BPM P-R Int : 134 ms QRS Dur : 080 ms QT Int : 294 ms P-R-T Axes : 079 055 060 degrees QTc Int : 406 ms Sinus tachycardia Otherwise normal ECG No previous ECGs available Confirmed by Duarte Bloom ([id number]) on 11/11/2022 10:15:06 AM Referred By: REFERRED SELF Confirmed By:Willy Bloom
[2022-11-11] MEDS: ACETAMINOPHEN 325 MG TAB PO PRN (15:48)
[2022-11-12] MEDS: SODIUM CHLORIDE 0.9% 1000ML 1,000 ML IV SCH ×2 (00:41→12:12)
[2022-11-12 06:01] LABS: Anion Gap 3 (3-11); BUN Creatinine Ratio 8.3 (10-20); Blood Urea Nitrogen 5 mg/dl (6-23); Carbon Dioxide 26 mmol/L (21-32); Chloride 112 mmol/L (98-107); Creatinine Clr Calc Pharmacy 125.6 ml/min; Est GFR (African American) > 150.0 ml/min; Est GFR (Non-African American) 131.2 ml/min; Glucose 103 mg/dl (70-99(Fasting)); Magnesium 1.9 mg/dl (1.7-2.4); Potassium 3.9 mmol/L (3.5-5.1); Sodium 141 mmol/L (136-145)
[2022-11-12 06:15] LABS: Basophils # (auto) 0.03 K/uL (0-0.2); Basophils % (auto) 0.2 %; Eosinophils # (auto) 0.04 K/uL (0-0.50); Eosinophils % (auto) 0.3 %; Hematocrit (blood only) 36.8 % (37.0-47.0); Hemoglobin 12.6 g/dl (12.0-16.0); Immature Granulocytes # (auto) 0.05 K/uL (0.01-0.20); Immature Granulocytes % (auto) 0.4 %; Lymphocytes # (auto) 2.18 K/uL (1.2-3.4); Mean Corpuscular Hemoglobin 33.2 pg (25.0-34.0); Mean Corpuscular Hgb Conc 34.2 g/dL (32.0-36.0); Mean Corpuscular Volume 97.1 fL (80.0-100.0); Mean Platelet Volume 9.9 fL (9.4-12.4); Monocytes # (auto) 1.32 K/uL (0.11-0.59); Monocytes % (auto) 10.3 %; Neutrophils # (auto) 9.24 K/uL (1.40-6.50); Neutrophils % (auto) 71.8 %; Platelet Count 266 K/uL (130-400); RDW Coefficient of Variation 11.6 % (11.5-14.5); RDW Standard Deviation 41.6 fL (36.4-46.3); Red Blood Count 3.79 M/uL (4.20-5.40); White Blood Count 12.86 K/ul (4.8-10.8)
[2022-11-12] MEDS: ACETAMINOPHEN 325 MG TAB PO PRN (08:19)
--- NOTE | 2022-11-12 15:36 | Discharge Summary ---
Date of Service November 12, 2022 Admission HPI Per Admitting Provider A 22-year-old female with past medical history significant for nausea, history of migraines, cystic fibrosis carrier, having fevers and headache in the front and back of the head since yesterday, she has body aches. That is the reason she came here. Light is not bothering her, but sound is bothering her. Hemodynamically stable. In the ER, she had a temperature spike of 38.8 and received Decadron, Toradol, morphine, Compazine, Tylenol, Benadryl, magnesium, and fluids in the ER. Still the headache is about 4/10 in severity. Currently, afebrile and hemodynamically stable. Denies any cough, no nausea, no vomiting, no chest pain, no shortness of breath, no abdominal pain. Normal bowel and bladder movements. No rash, no blurred visions, no earache, no runny nose. Denies any sore throat. No difficulty swallowing. Appetite is okay. Her white count was 15. She had extensive workup with respiratory BioFire which was unremarkable. Urinalysis was negative. She had CTA of the head and neck and CT of the head, which were unremarkable except for possible tonsillitis and she also had lumbar puncture, which showed a glucose of 73, rest was unremarkable. CSF Lyme studies are still pending. She also had Lyme screen, which is also pending. Currently, resting comfortably and hemodynamically stable.Mother in room. Admission Exam Per Admitting Provider GENERAL: The patient is thin and frail, not in acute distress. VITAL SIGNS: Temperature T-max 38.8, pulse 77, respiratory rate 16, blood pressure 125/79, oxygen 99% on room air. HEENT: Pupils equal, round and reactive to light. Oral mucosa moist. white streaks seen on the tonsils. NECK: No neck masses seen. CARDIOVASCULAR: S1 and S2 heard. Regular rate and rhythm. No murmur, no gallop. RESPIRATORY SYSTEM: Normal AP diameter. No accessory muscle use. No wheezing or crackles. ABDOMEN: Soft, bowel sounds present, nontender, no distention. CENTRAL NERVOUS SYSTEM: Cranial nerves II-XII grossly intact, nonfocal. EXTREMITIES: No edema, no erythema. Principal Diagnosis Fever, severe headache, likely secondary to viral illness Discharge Exam GENERAL: The patient is thin and frail, not in acute distress. HEENT: NC/AT. EOMI. Pupils equal, round and reactive to light. Oral mucosa moist. white streaks seen on the tonsils. NECK: No neck masses seen. CARDIOVASCULAR: S1 and S2 heard. Regular rate and rhythm. No murmur, no gallop. RESPIRATORY: Normal AP diameter. No accessory muscle use. No wheezing or crackles. ABDOMEN: Soft, bowel sounds present, nontender, no distention. NEURO:Awake alert, oriented able to answer questions appropriately. Speech fluent, no facial asymmetry, moves extremities EXTREMITIES: No edema, no erythema. Discharge Data Allergies Allergy/AdvReac Type Severity Reaction Status Date / Time amoxicillin [From Augmentin] Allergy Intermediate rash, Verified 11/10/22 23:13 tongue swelling, it was "hard to breathe" clavulanic acid Allergy Intermediate rash, Verified 11/10/22 23:13 [From Augmentin] tongue swelling, it was "hard to breathe" Penicillins Allergy Intermediate Hives Verified 11/10/22 23:13 sulfamethoxazole Allergy Intermediate Rash Verified 11/10/22 23:13 [From Bactrim] trimethoprim [From Bactrim] Allergy Intermediate Rash Verified 11/10/22 23:13 Consultations 11/11/22 04:28 ED Decision to Admit Stat 11/12/22 07:35 Consult Infectious Diseases Routine Ordered Studies 11/10/22 22:40 CT angio head w con Urgent FINDINGS: Brain volume is normal. Ventricular system is normal. No acute intracranial hemorrhage is identified. The bilateral M1, M2, A1 and A2 segments are patent. There is no central vessel occlusion. There is no intracranial aneurysm. Posterior circulation is also intact. The major dural sinuses are patent. IMPRESSION: Unremarkable CTA of the head. No aneurysm. No central vessel occlusion. CT angio neck with con Urgent FINDINGS: The aortic arch and proximal great vessels are widely patent. There is no significant stenosis, occlusion, or dissection identified within the bilateral common carotid, internal carotid, or vertebral arteries. Hypertrophy and heterogeneous enhancement within the adenoid and palatine tonsils with mild upper cervical lymphadenopathy. This may represent a tonsillitis. Hypoplastic distal left vertebral artery. Duplicated proximal right vertebral artery which joins at the mid cervical spine level. IMPRESSION: 1. No significant stenosis, occlusion, or dissection identified within the car otid or vertebral arteries. 2. Hypertrophy and heterogeneous enhancement within the adenoid and palatine tonsils with mild upper cervical lymphadenopathy. This may represent a tonsillitis. CT head/brain wo con Urgent FINDINGS: No acute intracranial hemorrhage, midline shift or mass effect is present. The ventricular system is unremarkable. The basal cisterns are patent. No extra-axial collections are present. There are no findings to suggest acute dural sinus thrombosis or acute territorial infarct. No significant calvarial abnormalities are present. Visualized portions of the sinuses and mastoid air cells are clear. The adenoids are prominent. IMPRESSION: No acute intracranial findings. Hospital Course (1) Headache: (2) Fever: This is a 22-year-old female who presents with fever, severe headaches, and body aches. 1. Fever, headaches, body aches: Could be viral syndrome. Imaging studies - CT head, CTA head and neck - unremarkable, report is showing possible tonsillitis, but procalcitonin is negative and pt does not have sore throat. Monospot and strep throat negative. LP in the ED done and CSF obtained CSF Lyme screen is pending and but serum Lyme screen is negative blood cultx - negat. in 24 Follow final results At home patient could not break fever, reported to take Tylenol and ibuprofen at max dose. In the ED received Decadron, Toradol, morphine, Compazine, Tylenol, Benadryl, and temp. controlled. IV Toradol and tylenol prn ordered. Pt continued to have some headache but improved. No more fever but took some tylenol while in the hosp. for ENCARNACION. Provided supportive care with fluids as well. ID consulted - consider checking mononucleosis heterophile antibody for diagnostic purposes but the result will not change coordinator. Check HIV antigen/antibody. Consider checking Anaplasma serum PCR if patient develops fever again. There is no clear indication to perform any other work-up or start on anti-infective at this point in time as patient has symptomatically improved. Unclear if patient has infection to begin with. She might have had some kind of viral illness but that she is feeling better, and fever has subsided already. Unless dealing with a chronic infection such as HIV, common viral illness is mostly short-lived. Doubt she has tonsillitis as she has no current symptoms to suggest such disease process. Overall patient is feeling better, and would like to be discharged home. Discussed ID recommendations, and testing. Pt will likely have HIV test done with her PCP at her next appointment. Total Time Total Time Spent Total Time Spent (In Minutes): 40 Discharge Plan Discharge Items Patient Disposition: Home - Self-Care Reason For Visit: FLU-LIKE SYMPTOMS Discharge Diagnosis: Fever, severe headache, likely secondary to viral illness Activity: Per Instructions section Non-emergency contact: Primary Care Provider Call non-emergency contact if: you have any medication questions and your symptoms worsen Follow-up/Referrals: Nitish Goodman, DO [Primary Care Provider] - (Date & Time 11/16/2022 9:00 AM Provider Saul Chin MD Department Family Practice [facility] ) Diet: Regular Addtl Attending Provider Instructions: Follow-up with your primary care physician, the appointment was scheduled for you for November 16. Pending Studies at Discharge: Yes Studies:: CSF Lyme Stand-Alone Forms: [employer]i, Smoking Cessation Medications and DC Order Prescriptions: Continued norethindrone (contraceptive) 0.35 mg tablet 0.35 mg PO DAILY Discharge Orders: Discharge Order (Routine); Ordered 11/12/22 Ordered By: Leobardo Fields Admission Data Admit Date/Time: 11/11/22 05:37 Attending Provider: Leobardo Fields Admit Provider: Roney Zamora Primary Care Provider: Nitish Goodman Other Providers: Roney Zamora ; Neil Garcia ; Mac Low ; Shankar Damon I. ; Jun Archer II ; Roslyn Arce ; Constantin Banda ; Zhang Castaneda ; Tim Agudelo
== END 2022-11-12 16:16 | disposition home or self-care (01) | DRG 866 ==
LOC: ED 21:06 → SUATTDRO 11-11 05:37 → 3E 11-11 05:37 → 2W 11-11 08:21

== ENCOUNTER 2024-10-08 23:24 | Inpatient (IN) ==
--- OUTSIDE RECORDS SUMMARY | 2024-10-08 23:29 | External Medical Summary | Summary of Care ---
Author Name Unknown Organization [facility] Address [address] [place] [address] Phone [phone] Care Team Providers Care Dba Manager Name Role Phone Nitish Goodman DO Primary Care Provider Reason for Visit * Reason Comments Return Visit Encounter Details Date Type Department Care Team (Late st Contact Info) Description 07/07/2024 11:30 AM EDT Office Visit Gynecology/Obstetric s Cj Keane [address] [place] [address] Sariah Willams CRNP [address] [place] [address] Supervision of normal first , antepartum*; Cystic fibrosis carrier, antepartum; White coat syndrome with diagnosis of hypertension; Need for prophylactic vaccination and inoculation against influenza; Breast feeding status of mother Allergies Active Allergy Reactions Criticality Noted Date Comments Amoxicillin High 12/02/2019 Tolerated cephalexin in past Sulfamethoxazole-Trimethoprim Rash High 2017 Clavulanic Acid High 12/02/2019 Sulfamethoxazole 12/02/2019 Trimethoprim 12/02/2019 documented as of this encounter (statuses as of 07/07/2024) Medications Medication Sig Dispensed Refills Start Date End Date Status Complete Oral Capsule Therapy Pack Take by mouth. Active Breast PumpIndications:Breas t feeding status of mother Z39.1, JAKOB 10/09/24, double electric pump 1 Each 07/07/2024 Active documented as of this encounter (statuses as of 07/07/2024) Active Problems Problem Noted Date Diagnosed Date White coat syndrome with diagnosis of hypertensi on 03/16/2024 Overview: Was seen by nephrology for HTN and given this diagnosis. Baseline preeclamptic labs ordered. 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 URI with cough and congestion 01/05/2023 Cystic fibrosis carrier 01/28/2021 Nausea without vomiting 07/23/2020 Well adult exam 07/23/2020 Migraine with aura and witho ut status migrainosus, not intractable 09/23/2015 Estimated Date of Delivery Comme nts Yes 10/09/2024 Based on Ultraso und documented as of this encounter (statuses as of 07/07/2024) Resolved Problems Problem Noted Date Diagnosed Date Resolved Date Oral contraceptive use 12/23/201809/17 Migraine without aura and wi thout status migrainosus, not intractable 12/23/2018 07/30/2021 Routine child health exam 07/26/2003 VACCIN FOR DISEASE NEC 07/26/200308/04 documented as of this encounter (statuses as of 07/07/2024) Immunizations Name Administration Dates Next Due COVID-19 mRNA, LNP-s, No Pre serve, 2-Dose Series (Pfizer) 02/01/2021,01/08/2021 DTaP Dipth/Tet/Acell Pertussis (Infanrix), Peds 05/06/2007 H1N1 2009 Influenza, IM 08/19/2009,07/19/2009 H1N1 2009 Influenza, Intranasal 08/19/2009,07/19 HPV Vaccine, 9-Valent 10/28/2020,08/26/2020 02/0 04/2021 Hepatitis A Vaccine 05/12/2019 Hepatitis A, Ped/Adol., 18 y ear and below, 2-Dose 05/12/2019 IPV - Polio Virus Vaccine (Inact) 05/06/2007 Influenza Vaccine, Live, Int ranasal, Trivalent (Flumist) 08/04/2011 MMR-JODIE - Measles/Mumps/Rubella/Varicella Vaccine 05/06/2007 Meningococcal Conjugate Vacc ine (Menactra/Menveo) 10/26/2013 Meningococcal MCV4O Conjugat e Vaccine (Menveo) 05/12/2019 Meningococcal MCV4P Conjugat e Vaccine (Menactra) 05/12/2019,10/26/2013 Seasonal Influenza Vac., MDV , IM, 0.5 mL (Fluzone) 10/26/2013,05/17/2009,08/07/2008,06/21 Seasonal Influenza Virus Vac cine, Unspecified Formulation 05/28/2021,05/30/2019,07/13/2018,05/22,10/10/2015,10/26/2013,08/04/20 11,05/17/2009,08/07/2008,07/12/2006,1 2002 Seasonal Influenza, PF, 6 M & above, IM , (FluLaval or Fluzone) 06/09/2023,07/24/2022,05/28/2021,05/21,07/13/2018,06/10/2017 Seasonal Influenza, Quadriva lent, No Preserve, IM 10/10/2015 Seasonal Influenza, Trivalen t, (IIV3), PF, (Fluzone) 07/07/2024 TDAP (age 10 and older)(Boostrix) 10/26/2013 documented as of this encounter Social History Tobacco Use Types Packs/Day Years Used Date Smoking Tobacco: Never Smokeless Tobacco: Never Alcohol Use Standard Drinks/Week Comments Not Currently 0 (1 standard drink = 0.6 oz pur e alcohol) occ PHQ-2 Answer Date Recorded PHQ Adult Total Score 0 02/24/2021 Hunger Vital Sign Answer Date Recorded Within the past 12 months, y ou worried that your food would run out before you got the money to buy more. Never true 03/14/20 Within the past 12 months, t he food you bought just didn't last and you didn't have money to get more. Never true 03/14/2024 [place] Depression Scale Answer Date Recorded [place] Depression Scale Total 0 03/14/2024 The thought of harming myself has occurred to me . Never 03/14/2024 Childcare Answer Date Recorded Do you feel overwhelmed with taking care of a child, family member or friend? No 03/14/2024 Does your family need help f inding childcare? (Household - for ages 0-17 years) Not on file 03/14/2024 Clothing Answer Date Recorded Have you been unable to get clothing when it was really needed? No 03/14/2024 Is your family able to get c lothes or diapers when needed? (Household - for ages 0-17 years) Not on file 03/14/2024 Personal Safety Answer Date Recorded Do you feel unsafe or have concerns for your saf ety? No 03/14/2024 Do you have concerns for you r family's safety? (Household - for ages 0-17 years) Not on file 03/14/2024 Utilities Answer Date Recorded Do you have trouble paying y our heating, water, or electric bill? No 03/14/2024 Is your family able to pay t he heat, water, or electric bill? (Household - for ages 0-17 years) Not on file 03/14/2024 Does your family have access to good internet? (Household - for ages 0-17 years) Not on file 03/14/2024 Employment Status Answer Date Recorded Are you unemployed or without regular income? No 03/14/2024 Does the household have a re gular source of income? (Household - for ages 0-17 years) Not on file 03/14/2024 Social Connections Answer Date Recorded How often do you feel lonely or isolated from th ose around you? Never 03/14/2024 Financial Resource Strain Answer Date R ecorded Do you have any trouble payi ng for your medications, or do you think you might in the future? No 03/14/2024 Does your family have troubl e paying for medicine? (Household - for ages 0-17 years) Not on file 03/14/2024 Transportation Needs Answer Date Record ed Do you have trouble getting a ride to medical visits or work? (Adult - for ages 18 years and over) Not on file 03/14/2024 Does your family have a hard time getting a ride to doctors visits? (Household - for ages 0-17 years) Not on file 03/14/2024 Has lack of transportation k ept you from medical appointments, meetings, work, or from getting things needed for daily living? Check all that apply. No 03/14/2024 Do you (or your family) have trouble finding or paying for a ride (transportation)? (Household - for ages 0-17 years) Not on file 03/14/2024 Housing Stability Answer Date Recorded Do you currently live in a s helter or have no steady place to sleep at night? No 03/14/2024 Do you think you are at risk of becoming homeless? (Adult - for ages 18 years and over) Not on file 03/14/2024 Does your family worry about paying for your home or becoming homeless? (Household - for ages 0-17 years) Not on file 0 03/14/2024 Are you homeless or worried that you might be in the future? No 03/14/2024 Are you (or your family) liz eless or worried that you might be in the future? (Household - for ages 0-17 years) Not on file Food Insecurity Answer Date Recorded Do you need food for this week? No 03/14/2024 Are you able to get enough f ood for your family? (Household - for ages 0-17 years) Not on file 03/14/2024 Does your family need food t his week? (Household - for ages 0-17 years) Not on file 03/14/2024 Do you always have enough fo od for your family? (Household - for ages 0-17 years) Not on file 03/14/2024 Estimated Date of Delivery Comme nts Yes 10/09/2024 Based on Ultraso und Sex and Gender Information Value Date Recorded Sex Assigned at Female 05/08/2022 11:38 AM EDT Gender Identity Female 05/08/2022 11:38 AM EDT Sexual Orientation Straight 05/08/2022 11 :38 AM EDT Job Start Date Occupation Industry Not on file Not on file Not on file documented as of this encounter Last Filed Vital Signs Vital Sign Reading Time Taken Comments Blood Pressure 114/70 07/07/2024 11:17 AM EDT Pulse - - Temperature - - Respiratory Rate - - Oxygen Saturation - - Inhaled Oxygen Concentration - - Weight 59.4 kg (131 lb) 07/07/2024 11:17 AM EDT Height - - Body Mass Index 20.67 05/11/2024 2:08 PM EDT documented in this encounter Progress Notes * Sariah Willams CRNP - 07/07/2024 11:29 AM EDT 26w4d Doing well, baby is active. No cramping/bleeding. Rx to nursing for breast pump. Discussed 3rd trimester labs and Tdap at 28 weeks. BP normal. Accepts flu shot. Return in 2 weeks. MAURICE Schmidt * Carey Marcus CMA - 07/07/2024 11:17 AM EDT 26w4d Denies any concerns documented in this encounter Nursing Notes * Leslye Ramirez LPN - 07/07/2024 11:36 AM EDT Are you experiencing any cold symptoms or fever? No Have you had Guillain-[place] Syndrome (an illness that causes paralysis)? No Have you had the flu shot in the past? YES Have you ever had a reaction to the flu shot? No Patient identified by name and birthdate. Influenza administered per clinic protocol. Patient received the Influenza virus vaccine VIS (Vaccine Information Sheet). Leslye Ramirez LPN documented in this encounter Miscellaneous Notes * Assessment & Plan Note - Leslye Ramirez LPN - 07/07/2024 11:37 AM EDT Associated Problem(s): Supervision of normal first , antepartum Flu Vaccine given 07/07 documented in this encounter Plan of Treatment Upcoming Encounters Date Type Department Care Team (Ephraim Contact Info) Description 2024 11:20 AM EDT [facility] [address] [place] [phone] Gerson Keane Chika [address] [place] [id number] 2024 1:30 PM EDT Office Visit Gynecology/Obstetrics C[facility] Keane [address] [place] [address] Tashi Elizabeth MD [address] [place] [address] Scheduled Orders Name Type Priority Associated Diagnoses Orde r Schedule 50-G GESTATIONAL GLUCOSE, 1 HOUR Lab Routine Supervision of normal first , antepartum Expected: 07/17/2024 (Approximate), Expires: 07/07/2025 CBC WITH WBC DIFFERENTIAL AND ANEMIA REFLEX WORKUP Lab Routine Supervision of normal first , antepartum Expected: 07/17/2024 (Approximate), Expires: 07/07/2025 SYPHILIS ANTIBODY SCREEN WITH REFLEX TO RPR Lab Routine Supervision of normal first , antepartum Expected: 07/17/2024 (Approximate), Expires: 07/07/2025 Health Maintenance Due Date Last Done Comments HPV (Gardasil) Vaccine (3 - 3-dose series) 02/24/2021 10/28/2020, 08/26/2020 Depression Screening 02/24/2022 02/24/2021 DTap/Tdap Vaccines (7 - Td or Tdap) 10/26/2023 10/26/2013, 05/06/2007, 10/25/2003, Additional history exists COVID-19 Vaccine (2023- season) 2024 02/01/2021, 01/08/2021 Gonorrhea / Chlamydia Screen 03/14/2025, 02/04/2024, 10/26/2023, Additional history exists GFR 03/16/2025 03/16/2024, 02/19, 12/08/2023, Additional history exists Yearly Wellness Visit 05/11/2025 05/11/2024 , 05/09/2022, 07/23/2020, Additional history exists Pap Smear 10/26/2026 10/26/2023 Hepatitis B Vaccine Completed 10/25/2003, 2002, 2002 MENINGOCOCCAL (MENACTRA/MENVEO) Completed 05/12/2019, 05/12/2019, 10/26/2013, Additional history exists Influenza Vaccine (FLU shot) Completed , 06/09/2023, 07/24/2022, Additional history exists Pneumococcal Vaccine: Pediatrics (0 to 5 Years) and At-Risk Patients (6 to 64 Years) Aged Out No longer eligible based on patient's age to complete this topic documented as of this encounter Medical Devices Not on filedocumented as of this encounter Visit Diagnoses Diagnosis Supervision of normal first , antepartum- Primary Cystic fibrosis carrier, antepartum Supervision of other high-risk White coat syndrome with diagnosis of hypertension Need for prophylactic vaccination and inoculation against influenza Breast feeding status of mother care and examination of lactating mother documented in this encounter Advance Directives * Full Code (Latest Code Status on File) Date Activated Date Inactivated Comments 06/09/2023 6:40 AM 06/09/2023 3:41 PM This order r eflects the patients wishes and were consensually agreed upon. Question Answer Comments Discussion of Advance Directives occurred with: Patient Care Teams Dba Manager Relationship Specialty Start Date End Date Nitish Goodman DO [address] [id number] PCP - General Family Medicine 07/23/20 documented as of this encounter
--- OUTSIDE RECORDS SUMMARY | 2024-10-08 23:29 | External Medical Summary | Summary of Care ---
Author Name Unknown Organization [facility] Address [address] [place] [address] Phone [phone] Care Team Providers Care Materials Management Clerk Name Role Phone GoodmanNitish DO Primary Care Provider Reason for Visit * Reason Comments Return Visit Encounter Details Date Type Department Care Team (Late st Contact Info) Description 09/06/2024 8:15 AM EST Office Visit Gynecology/Obstetric s [facility] Keane [address] [place] [address] Gisselle Lou CRNP [address] [place] [address] Supervision of normal first , antepartum*; Cystic fibrosis carrier, antepartum; White coat syndrome with diagnosis of hypertension; Need for prophylactic vaccination and inoculation against respiratory syncytial virus (RSV) Allergies Active Allergy Reactions Criticality Noted Date Comments Amoxicillin High 12/02/2019 Tolerated cephalexin in past Sulfamethoxazole-Trimethoprim Rash High 2017 Clavulanic Acid High 12/02/2019 Sulfamethoxazole 12/02/2019 Trimethoprim 12/02/2019 documented as of this encounter (statuses as of 09/06/2024) Medications Complete Oral Capsule Therapy Pack Take by mouth. Active Breast PumpIndications :Breast feeding status of mother Z39.1, JAKOB 10/09/24, double electric pump 1 Each 07/07/2024 Active documented as of this encounter (statuses as of 09/06/2024) Active Problems Problem Noted Date Diagnosed Date History of respiratory syncytial virus (RSV) vac cination 09/06/2024 Overview (09/06/2024): Received RSV vaccine 09/06/2024 White coat syndrome with diagnosis of hypertensi on 03/16/2024 Overview (03/16/2024): Was seen by nephrology for HTN and given this diagnosis. Baseline preeclamptic labs ordered. 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 URI with cough and congestion 01/05/2023 Cystic fibrosis carrier 01/28/2021 Nausea without vomiting 07/23/2020 Well adult exam 07/23/2020 Migraine with aura and witho ut status migrainosus, not intractable 09/23/2015 Estimated Date of Delivery Comme nts Yes 10/09/2024 Based on Ultraso und documented as of this encounter (statuses as of 09/06/2024) Resolved Problems Problem Noted Date Diagnosed Date Resolved Date Oral contraceptive use 12/23/201809/17 Migraine without aura and wi thout status migrainosus, not intractable 12/23/2018 07/30/2021 Routine child health exam 07/26/2003 VACCIN FOR DISEASE NEC 07/26/200308/04 documented as of this encounter (statuses as of 09/06/2024) Immunizations Name Administration Dates Next Due COVID-19 mRNA, LNP-s, No Pre serve, 2-Dose Series ([employer]) 02/01/2021,01/08/2021 DTaP Dipth/Tet/Acell Pertussis (Infanrix), Peds 05/06/2007 [...] Meningococcal MCV4P Conjugat e Vaccine (Menactra) 05/12/2019,10/26/2013 RSV Vac., Bivalent, Perfusio n F, Pf,0.5 Ml (Abrysvo) 09/06/2024 Seasonal Influenza Vac., MDV , IM, 0.5 mL (Fluzone) 10/26/2013,05/17/2009,08/07/2008,06/21 Seasonal Influenza Virus Vac cine, Unspecified Formulation 05/28/2021,05/30/2019,07/13/2018,05/22,10/10/2015,10/26/2013,08/04/20 11,05/17/2009,08/07/2008,07/12/2006,1 2002 Seasonal Influenza, PF, 6 M & above, IM , (FluLaval or Fluzone) 06/09/2023,07/24/2022,05/28/2021,05/21,07/13/2018,06/10/2017 Seasonal Influenza, Quadriva lent, No Preserve, IM 10/10/2015 Seasonal Influenza, Trivalen t, (IIV3), PF, (Fluzone) 07/07/2024 TDAP (age 10 and older)(Boostrix) 10/26/2013 TDAP, Age 7 and older, IM (Adacel) 2024 documented as of this encounter Social History [...] money to buy more. Never true 03/14/20 24 Within the past 12 months, t he food you bought just didn't last and you didn't have money to get more. Never true 03/14/2024 [place] Depression Scale Answer Date Recorded [place] Depression Scale Total 0 03/14/2024 The thought [...] Assigned at Female 05/08/2022 11:38 AM EDT Legal Sex Female 6:01 AM EST Gender Identity Female 05/08/2022 11:38 AM EDT Sexual Orientation Straight 05/08/2022 11 :38 AM EDT documented as of this encounter Last Filed Vital Signs Vital Sign Reading Time Taken Comments Blood Pressure 116/64 09/06/2024 8:10 AM EST Pulse - - Temperature - - Respiratory Rate - - Oxygen Saturation - - Inhaled Oxygen Concentration - - Weight 65.7 kg (144 lb 13.6 oz) 09/06/2024 8:10 AM EST Height - - Body Mass Index 22.86 08/04/2024 11:40 AM EST documented in this encounter Progress Notes * Gisselle Lou CRNP - 09/06/2024 8:28 AM EST 35w2d No concerns. Baby is active. Denies contractions, bleeding, LOF. RSV vaccine today. MAURICE Saunders * Carey Marcus CMA - 09/06/2024 8:10 AM EST 35w2d Denies any concerns documented in this encounter Plan of Treatment Upcoming Encounters Date Type Department Care Team (Late st Contact Info) Description 09/15/2024 8:45 AM EST Office Visit Gynecology/Obstetrics [facility] [address] [address] Tashi Elizabeth MD [address] [place] [address] 09/22/2024 10:45 AM EST Office Visit Gynecology/Obstetrics [facility] [address] [place] [address] Nataly Anguiano PA-C [address] [place] [address] 09/29/2024 8:30 AM EST Office Visit Gynecology/Obstetrics [facility] [address] [place] [address] Sariah Willams CRNP [address] [place] [address] 10/06/2024 10:45 AM EST Office Visit Gynecology/Obstetrics [facility] [address] [place] [address] Gisselle Lou CRNP [address] [place] [address] Health Maintenance Due Date Last Done Comments HPV (Gardasil) Vaccine (3 - 3-dose series) 02/24/2021 10/28/2020, 08/26/2020 Depression Screening 02/24/2022 02/24/2021 COVID-19 Vaccine ( season) 2024 02/01/2021, 01/08/2021 Gonorrhea / Chlamydia Screen 03/14/2025, 02/04/2024, 10/26/2023, Additional history exists GFR 03/16/2025 03/16/2024, 02/19, 12/08/2023, Additional history exists Pap Smear 10/26/2026 10/26/2023 DTap/Tdap Vaccines (8 - Td or Tdap) 2034 2024, 10/26/2013, 05/06/2007, Additional history exists Hepatitis B Vaccine Completed 10/25/2003, 2002, 2002 [...] mother care and examination of lactating mother Supervision of normal first , antepartum- Primary Cystic fibrosis carrier, antepartum Supervision of other high-risk White coat syndrome with diagnosis of hypertension Need for prophylactic vaccination and inoculation against respiratory syncytial virus (RSV) documented in this encounter Advance Directives * Full Code (Latest Code Status on File) Date Activated Date Inactivated Comments 06/09/2023 6:40 AM 06/09/2023 3:41 PM This order r eflects the patients wishes and were consensually agreed upon. Question Answer Comments Discussion of Advance Directives occurred with: Patient Care Teams Materials Management Clerk Relationship Specialty Start Date End Date Nitish Goodman DO [facility] [address] [place] [address] PCP - General Family Medicine 07/23/20 documented as of this encounter
--- OUTSIDE RECORDS SUMMARY | 2024-10-08 23:29 | External Medical Summary ---
Author Name Unknown Address Unknown Organization [id number]:[facility] - [facility] [address] [place] [address] Laboratory Report Ordering Provider Test Date Status LEONOR WHITEHEAD 09/15/2024 09:23:16 Final Observation Date Value Abnormality Reference (Units ) Status Streptococcus agalactiae DNA [Presence] in Specimen by SHAHZAD with probe detection 09/15/2024 09:23:16 Negative Negative Final No Group B Streptococcus det ected by culture-enhanced PCR (amplified probe). [facility] 09/15/2024 09:23:16 0.0 Final [facility] 09/15/2024 09:23:16 32.7 Final Performing Location [facility] - [address] [place] [address]
--- OUTSIDE RECORDS SUMMARY | 2024-10-08 23:29 | External Medical Summary | Summary of Care ---
Author Name Unknown Organization [facility] Address [address] [place] [address] Phone [phone] Care Team Providers Care Overhead Crane Technician Name Role Phone Nitish Goodman DO Primary Care Provider Reason for Visit * Reason Comments Return Visit Encounter Details Date Type Department Care Team (Late st Contact Info) Description 09/15/2024 8:45 AM EST Office Visit Gynecology/Obstetric s [facility] [address] [place] [address] Tashi Elizabeth MD [address] [place] [address] Supervision of normal first , antepartum*; Cystic fibrosis carrier, antepartum; White coat syndrome with diagnosis of hypertension; History of respiratory syncytial virus (RSV) vaccination Allergies Active Allergy Reactions Criticality Noted Date Comments Amoxicillin High 12/02/2019 Tolerated cephalexin in past Sulfamethoxazole-Trimethoprim Rash High 2017 Clavulanic Acid High 12/02/2019 Sulfamethoxazole 12/02/2019 Trimethoprim 12/02/2019 documented as of this encounter (statuses as of 09/15/2024) Medications Complete Oral Capsule Therapy Pack Take by mouth. Active Breast PumpIndications :Breast feeding status of mother Z39.1, JAKOB 10/09/24, double electric pump 1 Each 07/07/2024 Active documented as of this encounter (statuses as of 09/15/2024) Active Problems Problem Noted Date Diagnosed Date [...] as of this encounter (statuses as of 09/15/2024) Resolved Problems Problem Noted Date Diagnosed Date Resolved Date Oral contraceptive use 12/23/201809/17 Migraine without aura and wi thout status migrainosus, not intractable 12/23/2018 07/30/2021 Routine child health exam 07/26/2003 VACCIN FOR DISEASE NEC 07/26/200308/04 documented as of this encounter (statuses as of 09/15/2024) Immunizations Name Administration Dates Next Due COVID-19 mRNA, LNP-s, No Pre serve, 2-Dose Series ([employer]) 02/01/2021,01/08/2021 DTaP Dipth/Tet/Acell Pertussis (Infanrix), Peds 05/06/2007 [...] money to get more. Never true 03/14/2024 [place] Depression Scale Answer Date Recorded [place] Depression Scale Total 1 09/15/2024 The thought of harming myself has occurred to me . Never 09/15/2024 Childcare Answer Date Recorded Do you feel [...] Sign Reading Time Taken Comments Blood Pressure 124/80 09/15/2024 8:42 AM EST Pulse - - Temperature - - Respiratory Rate - - Oxygen Saturation - - Inhaled Oxygen Concentration - - Weight - - Height - - Body Mass Index - - documented in this encounter Progress Notes * Tashi Elizabeth MD - 09/15/2024 9:15 AM EST Pt doing well No complaints GBS culx done * Lynn Edgar LPN - 09/15/2024 8:41 AM EST 36w4d Denies vaginal bleeding/rom + movement No new concerns documented in this encounter Plan of Treatment Upcoming Encounters Date Type Department Care Team (Late st Contact Info) Description 09/22/2024 10:45 AM EST Office Visit Gynecology/Obst[facility]s [facility] [address] [place] [address] Nataly Anguiano PA-C [address] [place] [address] 09/29/2024 8:30 AM EST Office Visit Gynecology/Obstetrics [facility] [address] [place] [address] Sariah Willams CRNP [address] [place] [address] 10/06/2024 10:45 AM EST Office Visit Gynecology/Obstetrics [facility] [address] [place] [address] Gisselle Lou CRNP [address] [place] [address] Pending Results Name Type Priority Associated Diagnoses Date /Time GROUP B STREP CULTURE/PCR Lab Routine Supervision of normal first , antepartum 09/15/2024 9:23 AM EST Health Maintenance Due Date Last Done Comments HPV (Gardasil) Vaccine (3 - 3-dose series) 02/24/2021 10/28/2020, 08/26/2020 Depression Screening 02/24/2022 02/24/2021 COVID-19 Vaccine (2023- season) 2024 02/01/2021, 01/08/2021 [...] 5 Years) and At-Risk Patients (6 to 18 Years and 19+ Years) Aged Out No longer eligib le based on patient's age to complete this [...] White coat syndrome with diagnosis of hypertension History of respiratory syncytial virus (RSV) vaccination documented in this encounter Advance Directives * Full Code (Latest Code Status on File) Date Activated Date Inactivated Comments 06/09/2023 6:40 AM 06/09/2023 3:41 PM This order r eflects the patients wishes and were consensually agreed upon. Question Answer Comments Discussion of Advance Directives occurred with: Patient Care Teams Overhead Crane Technician Relationship Specialty Start Date End Date Nitish Goodman DO [address] [address] PCP - General Family Medicine 07/23/20 documented as of this encounter
--- OUTSIDE RECORDS SUMMARY | 2024-10-08 23:29 | External Medical Summary ---
Author Name Unknown Address Unknown Organization K0G[facility] [place] [address] Laboratory Report Ordering Provider Test Date Status WANG MAGAÑA 2024 13:59:01 Final Observation Date Value Abnormality Reference (Units ) Status SYNC LEUKOCYTES IN BLOOD BY AUTOMATED COUNT 2024 13:59:01 10.19 4.00-10.80 (K/uL) Final Segs 2024 13:59:01 77.3 Above high normal 40.0-75.0 (%) Final Lymphs % 2024 13:59:01 14.1 Below low normal 18.0-42.0 (%) Final Monos 2024 13:59:01 7.9 1.0-11.0 (%) Final Eosinophils 2024 13:59:01 0.5 0.0-6.0 (%) Final Basos 2024 13:59:01 0.2 0.0-2.0 (%) Final Absolute Segs 2024 13:59:01 7.88 Above high normal 1.80-7.70 (K/uL) Final Lymphs, absolute 2024 13:59:01 1.44 1.00-4.80 (K/ul) Final Monos, Abs 2024 13:59:01 0.80 0.00-1.10 (K/uL) Final Eos, Abs 2024 13:59:01 0.05 0.00-0.70 (K/uL) Final Basos, Abs 2024 13:59:01 0.02 0.00-0.20 (K/uL) Final Performing Location [facility] [place] [address] [place] [id number]
--- OUTSIDE RECORDS SUMMARY | 2024-10-08 23:29 | External Medical Summary | Summary of Care ---
Author Name Unknown Organization [facility] Address [address] [address] Phone [phone] Care Team Providers Care Head Of Precision Targeting Name Role Phone Rex Nitish Russo DO Primary Care Provider Reason for Visit * Reason Comments Return Visit Encounter Details Date Type Department Care Team (Late st Contact Info) Description 06/09/2024 10:30 AM EDT Office Visit Gynecology/Obstetric s [facility] [address] [place] [address] Gisselle Lou CRNP [address] [place] [address] Encounter for supervision of normal first in second trimester*; Cystic fibrosis carrier, antepartum; White coat syndrome with diagnosis of hypertension Allergies Active Allergy Reactions Criticality Noted Date Comments Amoxicillin High 12/02/2019 Tolerated cephalexin in past Sulfamethoxazole-Trimethoprim Rash High 2017 Clavulanic Acid High 12/02/2019 Sulfamethoxazole 12/02/2019 Trimethoprim 12/02/2019 documented as of this encounter (statuses as of 06/09/2024) Medications Medication Sig Dispensed Refills Start Date End Date Status Complete Oral Capsule Therapy Pack Take by mouth. Active documented as of this encounter (statuses as of 06/09/2024) Active Problems Problem Noted Date Diagnosed Date White coat syndrome with diagnosis of hypertensi on 03/16/2024 Overview: Was seen by nephrology for HTN and given this diagnosis. Baseline preeclamptic labs ordered. 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 URI with cough and congestion 01/05/2023 Cystic fibrosis carrier 01/28/2021 Nausea without vomiting 07/23/2020 Well adult exam 07/23/2020 Migraine with aura and witho ut status migrainosus, not intractable 09/23/2015 Estimated Date of Delivery Comme nts Yes 10/09/2024 Based on Ultraso und documented as of this encounter (statuses as of 06/09/2024) Resolved Problems Problem Noted Date Diagnosed Date Resolved Date Oral contraceptive use 12/23/201809/17 Migraine without aura and wi thout status migrainosus, not intractable 12/23/2018 07/30/2021 Routine child health exam 07/26/2003 VACCIN FOR DISEASE NEC 07/26/200308/04 documented as of this encounter (statuses as of 06/09/2024) Immunizations Name Administration Dates Next Due COVID-19 [...] Conjugat e Vaccine (Menactra) 05/12/2019,10/26/2013 Seasonal Influenza Virus Vac cine, Unspecified Formulation 05/28/2021,05/30/2019,07/13/2018,05/22,10/10/2015,10/26/2013,08/04/20 11,05/17/2009,08/07/2008,07/12/2006,1 2002 Seasonal Influenza, PF, 6 M & above, IM , (FluLaval or Fluzone) 06/09/2023,07/24/2022,05/28/2021,05/21,07/13/2018,06/10/2017 Seasonal Influenza, Quadriva lent, No Preserve, IM 10/10/2015 Seasonal Influenza, Trivalen t, (IIV3), with Preserv, (Fluzone) 10/26/2013,05/17/2009,08/07/2008,06/21 TDAP (age 10 and older)(Boostrix) 10/26/2013 documented [...] money to get more. Never true 03/14/2024 [place] Depression Scale Answer Date Recorded [place] Depression Scale Total 0 03/14/2024 The thought [...] No 03/14/2024 Does the household have a [facility] source of income? (Household - for ages [...] Sign Reading Time Taken Comments Blood Pressure 120/72 06/09/2024 10:17 AM EDT Pulse - - Temperature - - Respiratory Rate - - Oxygen Saturation - - Inhaled Oxygen Concentration - - Weight 55.8 kg (123 lb) 06/09/2024 10:17 AM EDT Height - - Body Mass Index 19.41 05/11/2024 2:08 PM EDT documented in this encounter Progress Notes * Gisselle Lou CRNP - 06/09/2024 10:44 AM EDT 22w4d Complaints: hip pain, suggested she go to the chiropractor. Feeling well otherwise. +FM. No contractions, bleeding, or LOF. MAURICE Saunders * Carey Marcus CMA - 06/09/2024 10:17 AM EDT 22w4d +nausea/vomiting + headaches, tylenol helps Was feeling sick 2 days ago but feeling better now. Right hip shooting pain when laying down at night to go to sleep. Has hx of joint issues. documented in this encounter Plan of Treatment Upcoming Encounters Date Type Department Care Team (Late st Contact Info) Description 07/07/2024 11:30 AM EDT Office Visit Gynecology/Obst[facility]s [facility] [address] [place] [address] BackSariah davidson CRNP [address] [place] [address] Health Maintenance Due Date Last Done Comments HPV (Gardasil) Vaccine (3 - 3-dose series) 02/24/2021 10/28/2020, 08/26/2020 Depression Screening 02/24/2022 02/24/2021 DTap/Tdap Vaccines (7 - Td or Tdap) 10/26/2023 10/26/2013, 05/06/2007, 10/25/2003, Additional history exists COVID-19 Vaccine (3 - season) 2024 02/01/2021, 01/08/2021 Influenza Vaccine (FLU shot) (#1) 2024 06/09/2023, 07/24/2022, 05/28/2021, Additional history exists Gonorrhea / Chlamydia Screen 03/14/2025, 02/04/2024, 10/26/2023, Additional history exists GFR 03/16/2025 03/16/2024, 02/19, 12/08/2023, Additional history exists Yearly Wellness Visit 05/11/2025 05/11/2024 , 05/09/2022, 07/23/2020, Additional history exists Pap Smear 10/26/2026 10/26/2023 Hepatitis B Vaccine Completed 10/25/2003, 2002, 2002 MENINGOCOCCAL (MENACTRA/MENVEO) Completed 05/12/2019, 05/12/2019, 10/26/2013, Additional history exists Pneumococcal Vaccine: Pediatrics (0 to 5 Years) and At-Risk Patients (6 to 64 Years) Aged Out No longer eligible based on patient's age to complete this topic documented as of this encounter Medical Devices Not on filedocumented as of this encounter Visit Diagnoses Diagnosis Encounter for supervision of normal first in second trimester- Primary Supervision of normal first Cystic fibrosis carrier, antepartum Supervision of other high-risk White coat syndrome with diagnosis of hypertension documented in this encounter Advance Directives * Full Code (Latest Code Status on File) Date Activated Date Inactivated Comments 06/09/2023 6:40 AM 06/09/2023 3:41 PM This order r eflects the patients wishes and were consensually agreed upon. Question Answer Comments Discussion of Advance Directives occurred with: Patient Care Teams Head Of Precision Targeting Relationship Specialty Start Date End Date Nitish Goodman DO [address] [address] [address] PCP - General Family Medicine 07/23/20 documented as of this encounter
--- OUTSIDE RECORDS SUMMARY | 2024-10-08 23:29 | External Medical Summary ---
Author Name Unknown Address Unknown Organization K01:[facility] [place] - [address] [facility] [address] Laboratory Report Ordering Provider Test Date Status WANG MAGAÑA 2024 13:59:01 Final Observation Date Value Abnormality Reference (Units ) Status Treponema pallidum Ab [Presence] in Serum by Immunoassay 2024 13:59:01 Nonreactive Nonreactive Final No serologic evidence of syp hilis. No additional testing clinicially indicated at this time. Consider repeat testing in 2-4 weeks if acute or primary syphilis is suspected. Performing Location [facility] [place] [facility] [address] [facility] [address]
--- OUTSIDE RECORDS SUMMARY | 2024-10-08 23:29 | External Medical Summary | Summary of Care ---
Author Name Unknown Organization [facility] Address [address] [place] [address] Phone [phone] Care Team Providers Care Snow Blower Name Role Phone Nitish Goodman DO Primary Care Provider Reason for Visit * Reason Comments Return Visit 37w 4d Encounter Details Date Type Department Care Team (Late st Contact Info) Description 09/22/2024 10:45 AM EST Office Visit Gynecology/Obstetric s [facility] [address] [place] [address] Nataly Anguiano PA-C [address] [place] [address] Supervision of normal first , antepartum*; Cystic fibrosis carrier, antepartum; White coat syndrome with diagnosis of hypertension; History of respiratory syncytial virus (RSV) vaccination Allergies Active Allergy Reactions Criticality Noted Date Comments Amoxicillin High 12/02/2019 Tolerated cephalexin in past Sulfamethoxazole-Trimethoprim Rash High 2017 Clavulanic Acid High 12/02/2019 Sulfamethoxazole 12/02/2019 Trimethoprim 12/02/2019 documented as of this encounter (statuses as of 09/22/2024) Medications Complete Oral Capsule Therapy Pack Take by mouth. Active Breast PumpIndications :Breast feeding status of mother Z39.1, JAKOB 10/09/24, double electric pump 1 Each 07/07/2024 Active documented as of this encounter (statuses as of 09/22/2024) Active Problems Problem Noted Date Diagnosed Date [...] as of this encounter (statuses as of 09/22/2024) Resolved Problems Problem Noted Date Diagnosed Date Resolved Date Oral contraceptive use 12/23/201809/17 Migraine without aura and wi thout status migrainosus, not intractable 12/23/2018 07/30/2021 Routine child health exam 07/26/2003 VACCIN FOR DISEASE NEC 07/26/200308/04 documented as of this encounter (statuses as of 09/22/2024) Immunizations Name Administration Dates Next Due COVID-19 mRNA, LNP-s, No Pre serve, 2-Dose Series ([employer]) 02/01/2021,01/08/2021 DTaP Dipth/Tet/Acell Pertussis (Infanrix), Peds 05/06/2007 [...] money to get more. Never true 03/14/2024 [place] Depression Scale Answer Date Recorded [place] Depression Scale Total 1 09/15/2024 The thought [...] Sign Reading Time Taken Comments Blood Pressure 118/70 09/22/2024 10:34 AM EST Pulse - - Temperature - - Respiratory Rate - - Oxygen Saturation - - Inhaled Oxygen Concentration - - Weight 67.6 kg (149 lb) 09/22/2024 10:34 AM EST Height - - Body Mass Index 23.51 08/04/2024 11:40 AM EST documented in this encounter Progress Notes * Nataly Anguiano PA-C - 09/22/2024 10:45 AM EST Joceline Cosby is a 24 year old female here for her routine OB appointment at 37w3d Her Estimated Date of Delivery: 10/09/24 REVIEW OF SYSTEMS She affirms movement. Denies vaginal bleeding, LOF, contractions. PHYSICAL EXAM Filed Vitals: 09/22/24 1034 BP: 118/70 Weight: 67.6 kg (149 lb) +FHT 140s Fundal height 36 cm Position: Cephalic ASSESSMENT/PLAN Supervision of normal first , antepartum (Primary) Cystic fibrosis carrier, antepartum White coat syndrome with diagnosis of hypertension Supervision of - labor precautions and kick counts reviewed RTO in 1 week Nataly Anguiano PA-C 09/21/2024 documented in this encounter Nursing Notes * Segun Marmolejo RN - 09/22/2024 10:36 AM EST Chief Complaint Patient presents with Return Visit 37w 4d Patient voices no concerns documented in this encounter Plan of Treatment Upcoming Encounters Date Type Department Care Team (Late st Contact Info) Description 09/29/2024 8:30 AM EST [facility] [address] [place] [address] Sariah Willams CRNP [address] [place] [address] 10/06/2024 10:45 AM EST Office Visit Gynecology/Obstetrics [facility] [address] [place] [address] Gisselle Lou CRNP [address] [place] [address] Health Maintenance Due Date Last Done Comments [...] Advance Directives occurred with: Patient Care Teams Snow Blower Relationship Specialty Start Date End Date Nitish Goodman DO [address] [place] [address] PCP - General Family Medicine 07/23/20 documented as of this encounter
--- OUTSIDE RECORDS SUMMARY | 2024-10-08 23:29 | External Medical Summary | Summary of Care ---
Author Name Unknown Organization [facility] Address [address] [place] [address] Phone [phone] Care Team Providers Care Assistant Therapy Aide Name Role Phone Nitish Goodman DO Primary Care Provider Reason for Visit * Reason Comments Return Visit Encounter Details Date Type Department Care Team (Late st Contact Info) Description 08/18/2024 11:30 AM EST Office Visit Gynecology/Obstetric s [facility] [address] [place] [address] Sariah Willams CRNP [address] [place] [address] Supervision of normal first , antepartum*; Cystic fibrosis carrier, antepartum; White coat syndrome with diagnosis of hypertension Allergies Active Allergy Reactions Criticality Noted Date Comments Amoxicillin High 12/02/2019 Tolerated cephalexin in past Sulfamethoxazole-Trimethoprim Rash High 2017 Clavulanic Acid High 12/02/2019 Sulfamethoxazole 12/02/2019 Trimethoprim 12/02/2019 documented as of this encounter (statuses as of 08/18/2024) Medications Complete Oral Capsule Therapy Pack Take by mouth. Active Breast PumpIndications :Breast feeding status of mother Z39.1, JAKOB 10/09/24, double electric pump 1 Each 07/07/2024 Active documented as of this encounter (statuses as of 08/18/2024) Active Problems Problem Noted Date Diagnosed Date [...] as of this encounter (statuses as of 08/18/2024) Resolved Problems Problem Noted Date Diagnosed Date Resolved Date Oral contraceptive use 12/23/201809/17 Migraine without aura and wi thout status migrainosus, not intractable 12/23/2018 07/30/2021 Routine child health exam 07/26/2003 VACCIN FOR DISEASE NEC 07/26/200308/04 documented as of this encounter (statuses as of 08/18/2024) Immunizations Name Administration Dates Next Due COVID-19 mRNA, LNP-s, No Pre serve, 2-Dose Series ([employer]) 02/01/2021,01/08/2021 DTaP Dipth/Tet/Acell Pertussis (Infanrix), Peds 05/06/2007 [...] money to get more. Never true 03/14/2024 [place] Depression Scale Answer Date Recorded [place] Depression Scale Total 0 03/14/2024 The thought [...] Sign Reading Time Taken Comments Blood Pressure 120/68 08/18/2024 11:27 AM EST Pulse - - Temperature - - Respiratory Rate - - Oxygen Saturation - - Inhaled Oxygen Concentration - - Weight 64 kg (141 lb) 08/18/2024 11:27 AM EST Height - - Body Mass Index 22.25 08/04/2024 11:40 AM EST documented in this encounter Progress Notes * Sariah Willams CRNP - 08/18/2024 11:34 AM EST 32w4d No ctx, bleeding, leaking. Baby is active. Discussed peds, will use [facility]. Gross movement observed. 2 week return MAURICE Schmidt * Carey Marcus CMA - 08/18/2024 11:27 AM EST 32w4d Denies any concerns documented in this encounter Plan of Treatment Upcoming Encounters Date Type Department Care Team (Late st Contact Info) Description 09/06/2024 8:15 AM EST Office Visit Gynecology/Obstetrics [facility] [address] [place] [address] Gisselle Lou CRNP [address] [place] [address] 09/15/2024 8:45 AM EST Office Visit Gynecology/Obstetrics [facility] [address] [place] [address] Tashi Elizabeth MD [address] [place] [address] 09/22/2024 10:45 AM EST Office Visit Gynecology/Obstetrics [facility] [address] [place] [address] Nataly Anguiano PA-C [address] [place] [address] 09/29/2024 8:30 AM EST Office Visit Gynecology/Obstetrics [facility] [address] [place] [address] Sariah Willams CRNP [address] [place] [address] 10/06/2024 10:45 AM EST Office Visit Gynecology/Obstetrics [facility] [address] [place] [address] Gisselle Lou CRNP [address] [place] [address] Health Maintenance Due Date Last Done Comments [...] Advance Directives occurred with: Patient Care Teams Assistant Therapy Aide Relationship Specialty Start Date End Date Nitish Goodman DO [address] [place] [address] PCP - General Family Medicine 07/23/20 documented as of this encounter
--- OUTSIDE RECORDS SUMMARY | 2024-10-08 23:29 | External Medical Summary | Summary of Care ---
Author Name Unknown Organization [facility] Address [address] [place] [address] Phone [phone] Care Team Providers Care Airframe And Power Plant Mechanic Name Role Phone Nitish Goodman DO Primary Care Provider Reason for Visit * Reason Comments Return Visit Encounter Details Date Type Department Care Team (Late st Contact Info) Description 2024 1:30 PM EDT Office Visit Gynecology/Obstetric s [facility] [address] [place] [address] Tashi Elizabeth MD [address] [place] [address] Supervision of normal first , antepartum*; Cystic fibrosis carrier, antepartum; White coat syndrome with diagnosis of hypertension Allergies Active Allergy Reactions Criticality Noted Date Comments Amoxicillin High 12/02/2019 Tolerated cephalexin in past Sulfamethoxazole-Trimethoprim Rash High 2017 Clavulanic Acid High 12/02/2019 Sulfamethoxazole 12/02/2019 Trimethoprim 12/02/2019 documented as of this encounter (statuses as of 2024) Medications Medication Sig Dispensed Refills Start Date End Date Status Complete Oral Capsule Therapy Pack Take by mouth. Active Breast PumpIndications:Breas t feeding status of mother Z39.1, JAKOB 10/09/24, double electric pump 1 Each 07/07/2024 Active documented as of this encounter (statuses as of 2024) Active Problems Problem Noted Date Diagnosed Date [...] as of this encounter (statuses as of 2024) Resolved Problems Problem Noted Date Diagnosed Date Resolved Date Oral contraceptive use 12/23/201809/17 Migraine without aura and wi thout status migrainosus, not intractable 12/23/2018 07/30/2021 Routine child health exam 07/26/2003 VACCIN FOR DISEASE NEC 07/26/200308/04 documented as of this encounter (statuses as of 2024) Immunizations Name Administration Dates Next Due COVID-19 [...] money to get more. Never true 03/14/2024 [place] Depression Scale Answer Date Recorded [place]ons Depression Scale Total 0 03/14/2024 The thought [...] Sign Reading Time Taken Comments Blood Pressure 122/68 2024 1:38 PM EDT Pulse - - Temperature - - Respiratory Rate - - Oxygen Saturation - - Inhaled Oxygen Concentration - - Weight 60.8 kg (134 lb) 2024 1:38 PM EDT Height 169.5 cm (5' 6.75") 2024 1:38 PM ED T Body Mass Index 21.14 2024 1:38 PM EDT documented in this encounter Progress Notes * Tashi Elizabeth MD - 2024 1:48 PM EDT Pt doing well No complaints RTC 2 weeks * Svitlana Olguin LPN - 2024 1:36 PM EDT 28w4d Doing glucola documented in this encounter Nursing Notes * Svitlana Olguin LPN - 2024 1:53 PM EDT Patient here for tdap injection. Patient doing well no complaints. Injection given IM as ordered. Patient tolerated well. Patient to follow up as directed. Patient instructed to call if any complications. Patient verbalized understanding of instructions given and her follow up appt for 2 weeks Injection site: Left Deltoid Medication Source: Dispensed stock medication documented in this encounter Plan of Treatment Upcoming Encounters Date Type Department Care Team (Late st Contact Info) Description 08/04/2024 11:45 AM EST Office Visit Gynecology/Obstetrics [facility] [address] [place] [address] Laurie Magallon PA-C [address] [place] [address] Health Maintenance Due Date Last Done Comments [...] Advance Directives occurred with: Patient Care Teams Airframe And Power Plant Mechanic Relationship Specialty Start Date End Date Nitish Goodman DO [address] [place] [address] PCP - General Family Medicine 07/23/20 documented as of this encounter
--- OUTSIDE RECORDS SUMMARY | 2024-10-08 23:29 | External Medical Summary ---
Author Name Unknown Address Unknown Organization [facility] [facility] [address] [place] [address] Laboratory Report Ordering Provider Test Date Status WANG MAGAÑA 2024 13:59:01 Final Observation Date Value Abnormality Reference (Units ) Status WBC, Total 2024 13:59:01 10.19 4.00-10.8 0 (K/uL) Final RBC 2024 13:59:01 3.93 3.85-5.15 (M/uL) Final Hemoglobin 2024 13:59:01 13.1 12.0-15.3 (g/dL) Final Anemia reflex testing trigge rs on a HGB < 12.0 for Females and HGB < 13.0 for Males in accordance with the WHO Anemia Guidelines
Anemia reflex testing triggers on a HGB < 12.0 for Females and HGB < 13.0 for Males in accordance with the WHO Anemia Guidelines HCT 2024 13:59:01 38.6 36.0-45.2 (%) Final MCV 2024 13:59:01 98.2 81.5-97.5 (fL) Final MCH 2024 13:59:01 33.3 27.0-34.0 (pg) Final MCHC 2024 13:59:01 33.9 32.0-36.0 (g/dL) Final RDW 2024 13:59:01 12.2 11.5-15.5 (%) Final Platelets 2024 13:59:01 308 140-400 (K /uL) Final MPV 2024 13:59:01 9.2 6.6-11.1 ( fL) Final Performing Location [facility] [address] [place] [address]
--- OUTSIDE RECORDS SUMMARY | 2024-10-08 23:29 | External Medical Summary | Summary of Care ---
Author Name Unknown Organization [facility] Address [address] [place] [address] Phone [phone] Care Team Providers Care Email Administrator Name Role Phone GoodmanNitish DO Primary Care Provider Reason for Visit * Reason Comments Return Visit Encounter Details Date Type Department Care Team (Late st Contact Info) Description 09/29/2024 8:30 AM EST Office Visit Gynecology/Obstetric s [facility] [address] [place] [address] Sariah Willams CRNP [address] [place] [address] Supervision of normal first , antepartum*; Cystic fibrosis carrier, antepartum; White coat syndrome with diagnosis of hypertension; History of respiratory syncytial virus (RSV) vaccination Allergies Active Allergy Reactions Criticality Noted Date Comments Amoxicillin High 12/02/2019 Tolerated cephalexin in past Sulfamethoxazole-Trimethoprim Rash High 2017 Clavulanic Acid High 12/02/2019 Sulfamethoxazole 12/02/2019 Trimethoprim 12/02/2019 documented as of this encounter (statuses as of 09/29/2024) Medications Complete Oral Capsule Therapy Pack Take by mouth. Active Breast PumpIndications :Breast feeding status of mother Z39.1, JAKOB 10/09/24, double electric pump 1 Each 07/07/2024 Active documented as of this encounter (statuses as of 09/29/2024) Active Problems Problem Noted Date Diagnosed Date [...] as of this encounter (statuses as of 09/29/2024) Resolved Problems Problem Noted Date Diagnosed Date Resolved Date Oral contraceptive use 12/23/201809/17 Migraine without aura and wi thout status migrainosus, not intractable 12/23/2018 07/30/2021 Routine child health exam 07/26/2003 VACCIN FOR DISEASE NEC 07/26/200308/04 documented as of this encounter (statuses as of 09/29/2024) Immunizations Name Administration Dates Next Due COVID-19 mRNA, LNP-s, No Pre serve, 2-Dose Series ([employer]) 02/01/2021,01/08/2021 DTaP Dipth/Tet/Acell Pertussis (Infanrix), Peds 05/06/2007 [...] money to get more. Never true 03/14/2024 [place] Depression Scale Answer Date Recorded [place] Depression Scale Total 1 09/15/2024 The thought [...] Sign Reading Time Taken Comments Blood Pressure 114/72 09/29/2024 8:13 AM EST Pulse - - Temperature - - Respiratory Rate - - Oxygen Saturation - - Inhaled Oxygen Concentration - - Weight 67.9 kg (149 lb 11.2 oz) 09/29/2024 8:13 AM EST Height 169.5 cm (5' 6.75") 09/29/2024 8:13 AM ES T Body Mass Index 23.62 09/29/2024 8:13 AM EST documented in this encounter Progress Notes * Sariah Willams CRNP - 09/29/2024 8:36 AM EST 38w4d Baby moving a lot. No ctx, leaking/bleeding. Discussed delivery by 42 weeks. Offered to schedule a 41 week induction, declines this today - willconsider for next visit. Discussed [facility] and labor signs, when to call. 1 week return MAURICE Schmidt * Carey Marcus CMA - 09/29/2024 8:16 AM EST 38w4d Denies any concerns documented in this encounter Plan of Treatment Upcoming Encounters Date Type Department Care Team (Late st Contact Info) Description 10/06/2024 10:45 AM EST Office Visit Gynecology/Obstetrics [facility] [address] [place] [address] Gisselle Lou CRNP [address] [place] [address] Health Maintenance Due Date Last Done Comments [...] Advance Directives occurred with: Patient Care Teams Email Administrator Relationship Specialty Start Date End Date Nitish Goodman DO [address] [place] [address] PCP - General Family Medicine 07/23/20 documented as of this encounter
--- OUTSIDE RECORDS SUMMARY | 2024-10-08 23:29 | External Medical Summary | Summary of Care ---
Author Name Unknown Organization [facility] Address [address] [facility] [address] Phone [phone] Care Team Providers Care Cena Name Role Phone Nitish Goodman DO Primary Care Provider Reason for Visit * Reason Comments Physical-Exam Annual Encounter Details Date Type Department Care Team (Late st Contact Info) Description 05/11/2024 2:20 PM EDT Office Visit Family [facility] [address] [place] [address] Nitish Goodman DO [address] [place] [address] Well adult exam*; Supervision of normal first , antepartum Allergies Active Allergy Reactions Criticality Noted Date Comments Amoxicillin High 12/02/2019 Tolerated cephalexin in past Sulfamethoxazole-Trimethoprim Rash High 2017 Clavulanic Acid High 12/02/2019 Sulfamethoxazole 12/02/2019 Trimethoprim 12/02/2019 documented as of this encounter (statuses as of 05/11/2024) Medications Medication Sig Dispensed Refills Start Date End Date Status Complete Oral Capsule Therapy Pack Take by mouth. Active documented as of this encounter (statuses as of 05/11/2024) Active Problems Problem Noted Date Diagnosed Date [...] as of this encounter (statuses as of 05/11/2024) Resolved Problems Problem Noted Date Diagnosed Date Resolved Date Oral contraceptive use 12/23/201809/17 Migraine without aura and wi thout status migrainosus, not intractable 12/23/2018 07/30/2021 Routine child health exam 07/26/2003 VACCIN FOR DISEASE NEC 07/26/200308/04 documented as of this encounter (statuses as of 05/11/2024) Immunizations Name Administration Dates Next Due COVID-19 mRNA, LNP-s, No Pre serve, 2-Dose Series (Pfizer) 02/01/2021,01/08/2021 DTaP Dipth/Tet/Acell Pertussis (Infanrix), Peds 05/06/2007 H1N1 2009 Influenza, IM 08/19/2009,07/19/2009 H1N1 2009 Influenza, Intranasal 08/19/2009,07/19 HPV Vaccine, 9-Valent 10/28/2020,08/26/2020 02/0 04/2021 Hepatitis A Vaccine 05/12/2019 Hepatitis A, Ped/Adol., 18 y ear and below, 2-Dose 05/12/2019 IPV - Polio Virus Vaccine (Inact) 05/06/2007 MMR-JODIE - Measles/Mumps/Rubella/Varicella Vaccine 05/06/2007 Meningococcal Conjugate Vacc ine (Menactra/Menveo) 10/26/2013 Meningococcal MCV4O Conjugat e Vaccine (Menveo) 05/12/2019 Meningococcal MCV4P Conjugat e Vaccine (Menactra) 05/12/2019,10/26/2013 Seasonal Influenza Intranasal 08/04/2011 Seasonal Influenza Virus Vac cine, Unspecified Formulation 05/28/2021,05/30/2019,07/13/2018,05/22,10/10/2015,10/26/2013,08/04/20 11,05/17/2009,08/07/2008,07/12/2006,1 2002 Seasonal Influenza, PF, 6 M & above, IM , (FluLaval or Fluzone) 06/09/2023,07/24/2022,05/28/2021,05/21,07/13/2018,06/10/2017 Seasonal Influenza, Quadriva lent, No Preserve, IM 10/10/2015 Seasonal Influenza, Split, I IV3, With Preserve, Inj 10/26/2013,05/17/2009,08/07/2008,06/21 TDAP (age 10 and older)(Boostrix) 10/26/2013 [...] money to get more. Never true 03/14/2024 [place] Depression Scale Answer Date Recorded [place] Depression Scale Total 0 03/14/2024 The thought [...] Sign Reading Time Taken Comments Blood Pressure 112/68 05/11/2024 2:08 PM EDT Pulse 75 05/11/2024 2:08 PM EDT Temperature 36.9 C (98.4 F) 05/11/2024 2:08 PM ED T Respiratory Rate - - Oxygen Saturation 99% 05/11/2024 2:08 PM EDT Inhaled Oxygen Concentration - - Weight 55.2 kg (121 lb 9.6 oz) 05/11/2024 2:08 P M EDT Height 169.5 cm (5' 6.75") 05/11/2024 2:08 PM ED T Body Mass Index 19.19 05/11/2024 2:08 PM EDT documented in this encounter Progress Notes * Nitish Goodman DO - 05/11/2024 2:12 PM EDT Images from the original note were not included. Assessment and Plan Well adult exam Educated the patient on routine and scheduled health maintenance items. Age appropriate preventive guidance provided to patient, to include breast (if appropriate), cervical (if appropriate, lipid and diabetic screening. Discussion of age appropriate generally recommended screening tests reviewed. Any imaging and blood testing ordered in agreement with and in shared decision making with patient. Supervision of normal first , antepartum Continue OB visits and routine surveillance Her BP has been well controlled without medications Which is great Continue to monitor both at home and in OB clinic History of Present Illness Joceline Cosby is a 23 year old female that presents for Physical-Exam (Annual ) Presents today in f/u Has been doing very well And is 18 wks with boy right now Her BP has been good, which she Attributes to [place] 3 supplementation Physical Exam Vitals: 05/11/24 1408 Temp: 36.9 C (98.4 F) Pulse: 75 SpO2: 99% BP: 112/68 BMI: 19.2 Physical Exam Constitutional: Appearance: Normal appearance. HENT: Head: Normocephalic and atraumatic. Eyes: Extraocular Movements: Extraocular movements intact. Pupils: Pupils are equal, round, and reactive to light. Cardiovascular: Rate and Rhythm: Normal rate and regular rhythm. Pulmonary: Effort: Pulmonary effort is normal. Breath sounds: Normal breath sounds. Neurological: General: No focal deficit present. Mental Status: She is alert and oriented to person, place, and time. Psychiatric: Mood and Affect: Mood normal. Behavior: Behavior normal. Wrap-Up Time: Total time today was 25 minutes excluding any time spent in the performance of separately billed services. documented in this encounter Nursing Notes * Dipika Christina LPN - 05/11/2024 2:08 PM EDT The patient has been properly identified by confirmation of name and date of . Chief Complaint Patient presents with Physical-Exam Annual documented in this encounter Plan of Treatment Upcoming Encounters Date Type Department Care Team (Late st Contact Info) Description 05/26/2024 9:30 AM EDT Imaging [facility] [address] [place] [address] 06/09/2024 10:30 AM EDT Office Visit Gynecology/Obstetrics [facility] [address] [place] [address] Gisselle Lou CRNP [address] [place] [address] Health Maintenance Due Date Last Done Comments HPV (Gardasil) Vaccine (3 - 3-dose series) 02/24/2021 10/28/2020, 08/26/2020 Depression Screening 02/24/2022 02/24/2021 COVID-19 Vaccine (3 - 2022- season) 2023 02/01/2021, 01/08/2021 DTaP,Tdap,and Td Vaccines (7 - Td or Tdap) 10/26/2023 10/26/2013, 05/06/2007, 10/25/2003, Additional history exists Influenza Vaccine (FLU shot) (#1) 2024 06/09/2023, [...] as of this encounter Visit Diagnoses Diagnosis Well adult exam- Primary Routine general medical examination at a health care facility Supervision of normal first , antepartum documented in this encounter Advance Directives * Full Code (Latest Code Status on File) Date Activated Date Inactivated Comments 06/09/2023 6:40 AM 06/09/2023 3:41 PM This order r eflects the patients wishes and were consensually agreed upon. Question Answer Comments Discussion of Advance Directives occurred with: Patient Care Teams Cena Relationship Specialty Start Date End Date Nitish Goodman DO [address] [place] [address] PCP - General Family Medicine 07/23/20 documented as of this encounter
--- OUTSIDE RECORDS SUMMARY | 2024-10-08 23:29 | External Medical Summary | Summary of Care ---
Author Name Unknown Organization [facility] Address [address] [place] [address] Phone [phone] Care Team Providers Care Felt Cutter Name Role Phone Rex Nitish Russo DO Primary Care Provider Reason for Visit * Reason Comments Outpatient Testing Encounter Details Date Type Department Care Team (Late st Contact Info) Description 2024 1:00 PM EDT Laboratory Laboratory, [facility] [address] [place] [address] [facility] [address] [place] [address] Supervision of normal first , antepartum Allergies [...] money to get more. Never true 03/14/2024 [place] Depression Scale Answer Date Recorded [place] Depression Scale Total 0 03/14/2024 The thought [...] on file documented as of this encounter Plan of Treatment Upcoming Encounters Date Type Department Care Team (Late st Contact Info) Description 08/04/2024 11:45 AM EST Office Visit Gynecology/Obstetrics [address] [place] [address] Laurie Magallon PA-C [address] [place] [address] Pending Results Name Type Priority Associated Diagnoses Date /Time 50-G GESTATIONAL GLUCOSE, 1 HOUR Lab Routine Supervision of normal first , antepartum 2024 1:59 PM EDT CBC WITH WBC DIFFERENTIAL AND ANEMIA REFLEX WORKUP Lab Routine Supervision of normal first , antepartum 2024 1:59 PM EDT SYPHILIS ANTIBODY SCREEN WITH REFLEX TO RPR Lab Routine Supervision of normal first , antepartum 2024 1:59 PM EDT ANEMIA REFLEX CHEMISTRY HOLD Lab Routine Supervision of normal first , antepartum 2024 1:59 PM EDT SYPHILIS ANTIBODY SCREEN Lab Routine Supervision of normal first , antepartum 2024 1:59 PM EDT Health Maintenance Due Date Last Done Comments [...] Not on filedocumented as of this encounter Procedures Procedure Name Priority Date/Time Associated Diagnosis Comments ANEMIA CBC Routine 2024 1:59 PM EDT Supervision of normal first , antepartum DIFFERENTIAL, AUTOMATED Routine 2024 1:59 PM EDT Supervision of normal first , antepartum documented in this encounter Results * (ABNORMAL) DIFFERENTIAL, AUTOMATED (2024 1:59 PM EDT) WBC 10.19 4.00 - 10.80 K/uL 2024 2:05 PM EDT [facility] Neutrophils % 77.3(H) 40.0 - 75.0 % 2024 2:05 PM EDT [facility] Lymphocytes % 14.1(L) 18.0 - 42.0 % 2024 2:05 PM EDT [facility] Monocytes % 7.9 1.0 - 11.0 % 2024 2:05 PM EDT [facility] Eosinophils % 0.5 0.0 - 6.0 % 2024 2:05 PM EDT [facility] Basophils % 0.2 0.0 - 2.0 % 2024 2:05 PM EDT [facility] Absolute Neutrophils 7.88(H) 1.80 - 7.70 K/uL 2024 2:05 PM EDT [facility] Absolute Lymphocytes 1.44 1.00 - 4.80 K/ul 2024 2:05 PM EDT [facility] Absolute Monocytes 0.80 0.00 - 1.10 K/uL 2024 2:05 PM EDT [facility] Absolute Eosinophils 0.05 0.00 - 0.70 K/uL 2024 2:05 PM EDT [facility] Absolute Basophils 0.02 0.00 - 0.20 K/uL 2024 2:05 PM EDT [facility] Blood Venous blood specimen / Unknown Venipuncture / Unknown 2024 1:59 PM EDT 2024 1:59 PM EDT Sariah Campbell Backer AFFIRMATIVE ACTION SPECIALIST LAB BLOOD O RDERABLES [facility] [address] [place] [address] * ANEMIA CBC (2024 1:59 PM EDT) WBC 10.19 4.00 - 10.80 K/uL 2024 2:05 PM EDT [facility] RBC 3.93 3.85 - 5.15 M/uL 2024 2:05 PM EDT [facility] HGB 13.1 12.0 - 15.3 g/dL 2024 2:05 PM EDT [facility] Comment: Anemia reflex testing triggers on a HGB < 12.0 for Females and HGB < 13.0 for Males in accordance with the WHO Anemia Guidelines Anemia reflex testing triggers on a HGB < 12.0 for Females and HGB < 13.0 for Males in accordance with the WHO Anemia Guidelines HCT 38.6 36.0 - 45.2 % 2024 2:05 PM EDT [facility] MCV 98.2 81.5 - 97.5 fL 2024 2:05 PM EDT [facility] MCH 33.3 27.0 - 34.0 pg 2024 2:05 PM EDT [facility] MCHC 33.9 32.0 - 36.0 g/dL 2024 2:05 PM EDT [facility] RDW 12.2 11.5 - 15.5 % 2024 2:05 PM EDT [facility] PLT 308 140 - 400 K/uL 2024 2:05 PM EDT [facility] MPV 9.2 6.6 - 11.1 fL 2024 2:05 PM EDT [facility] Blood Venous blood specimen / Unknown Venipuncture / Unknown 2024 1:59 PM EDT 2024 1:59 PM EDT Sariah Campbell Backer AFFIRMATIVE ACTION SPECIALIST LAB BLOOD O RDERABLES [facility] [address] [place] [address] documented in this encounter Visit Diagnoses Diagnosis Supervision of normal first , antepartum documented in this encounter Advance Directives * Full Code (Latest Code Status on File) Date Activated Date Inactivated Comments 06/09/2023 6:40 AM 06/09/2023 3:41 PM This order r eflects the patients wishes and were consensually agreed upon. Question Answer Comments Discussion of Advance Directives occurred with: Patient Care Teams Felt Cutter Relationship Specialty Start Date End Date Nitish Goodman DO [address] [place] [address] PCP - General Family Medicine 07/23/20 documented as of this encounter
--- OUTSIDE RECORDS SUMMARY | 2024-10-08 23:29 | External Medical Summary | Summary of Care ---
Author Name Unknown Organization [facility] Address [address] [place] [address] Phone [phone] Care Team Providers Care Material Lister Name Role Phone GoodmanNitish DO Primary Care Provider Reason for Visit * Reason Comments Return Visit Encounter Details Date Type Department Care Team (Late st Contact Info) Description 10/06/2024 10:45 AM EST Office Visit Gynecology/Obstetric s [facility] [address] [place] [address] Gisselle Lou CRNP [address] [place] [address] Supervision of normal first , antepartum*; Cystic fibrosis carrier, antepartum; White coat syndrome with diagnosis of hypertension; History of respiratory syncytial virus (RSV) vaccination Allergies Active Allergy Reactions Criticality Noted Date Comments Amoxicillin High 12/02/2019 Tolerated cephalexin in past Sulfamethoxazole-Trimethoprim Rash High 2017 Clavulanic Acid High 12/02/2019 Sulfamethoxazole 12/02/2019 Trimethoprim 12/02/2019 documented as of this encounter (statuses as of 10/06/2024) Medications Complete Oral Capsule Therapy Pack Take by mouth. Active Breast PumpIndications :Breast feeding status of mother Z39.1, JAKOB 10/09/24, double electric pump 1 Each 07/07/2024 Active documented as of this encounter (statuses as of 10/06/2024) Active Problems Problem Noted Date Diagnosed Date [...] as of this encounter (statuses as of 10/06/2024) Resolved Problems Problem Noted Date Diagnosed Date Resolved Date Oral contraceptive use 12/23/201809/17 Migraine without aura and wi thout status migrainosus, not intractable 12/23/2018 07/30/2021 Routine child health exam 07/26/2003 VACCIN FOR DISEASE NEC 07/26/200308/04 documented as of this encounter (statuses as of 10/06/2024) Immunizations Name Administration Dates Next Due COVID-19 [...] money to get more. Never true 03/14/2024 [place] Depression Scale Answer Date Recorded [place] Depression Scale Total 1 09/15/2024 The thought [...] Sign Reading Time Taken Comments Blood Pressure 120/82 10/06/2024 10:33 AM EST Pulse - - Temperature - - Respiratory Rate - - Oxygen Saturation - - Inhaled Oxygen Concentration - - Weight 68.2 kg (150 lb 6.4 oz) 10/06/2024 10:33 AM EST Height - - Body Mass Index 23.73 09/29/2024 8:13 AM EST documented in this encounter Progress Notes * Gisselle Lou CRNP - 10/06/2024 10:43 AM EST 39w4d No concerns. Baby is active. Denies contractions, bleeding, LOF. Discussed IOL, wants to wait until the end of her 41st week of , IOL at [facility]. If she has spontaneous labor, planning to go to [facility]. Asking for cervical check. Echo Technologist Documentation Provider requested configuration management consultant. Name of configuration management consultant: MAURICE Lieberman * Carey Marcus CMA - 10/06/2024 10:33 AM EST 39w4d Requesting cervical check. Agreeable to scheduling IOL today. Requesting [facility] due to feeling more comfortable being induced there. Requesting end of 41st week, 10/18 or 10/19. [facility] only available Monday 10/16. Pt unhappy with date of IOL. Asked if I could call over to [facility] and see if they had the dates previously requested. [facility] first available IOL was 10/24, pt would be over 42 weeks on that date. Pt kept IOL at [facility] for 10/16. documented in this encounter Plan of Treatment Upcoming Encounters Date Type Department Care Team (Late st Contact Info) Description 10/13/2024 8:45 AM EST Office Visit Gynecology/Obstetrics [facility] [address] [place] [address] Gisselle Lou CRNP [address] [place] [address] Health Maintenance Due Date Last Done Comments [...] Advance Directives occurred with: Patient Care Teams Material Lister Relationship Specialty Start Date End Date Nitish Goodman DO [address] [place] [address] PCP - General Family Medicine 07/23/20 documented as of this encounter
--- OUTSIDE RECORDS SUMMARY | 2024-10-08 23:29 | External Medical Summary | Summary of Care ---
Author Name Unknown Organization [facility] Address [address] [place] [address] Phone [phone] Care Team Providers Care Event Host Name Role Phone Nitish Goodman DO Primary Care Provider Reason for Visit * Reason Comments Return Visit Encounter Details Date Type Department Care Team (Late st Contact Info) Description 08/04/2024 11:45 AM EST Office Visit Gynecology/Obstetric s [facility] [address] [place] [address] Laurie Magallon PA-C [address] [place] [address] Supervision of normal first , antepartum*; Cystic fibrosis carrier, antepartum; White coat syndrome with diagnosis of hypertension Allergies Active Allergy Reactions Criticality Noted Date Comments Amoxicillin High 12/02/2019 Tolerated cephalexin in past Sulfamethoxazole-Trimethoprim Rash High 2017 Clavulanic Acid High 12/02/2019 Sulfamethoxazole 12/02/2019 Trimethoprim 12/02/2019 documented as of this encounter (statuses as of 08/04/2024) Medications Complete Oral Capsule Therapy Pack Take by mouth. Active Breast PumpIndications :Breast feeding status of mother Z39.1, JAKOB 10/09/24, double electric pump 1 Each 07/07/2024 Active documented as of this encounter (statuses as of 08/04/2024) Active Problems Problem Noted Date Diagnosed Date [...] as of this encounter (statuses as of 08/04/2024) Resolved Problems Problem Noted Date Diagnosed Date Resolved Date Oral contraceptive use 12/23/201809/17 Migraine without aura and wi thout status migrainosus, not intractable 12/23/2018 07/30/2021 Routine child health exam 07/26/2003 VACCIN FOR DISEASE NEC 07/26/200308/04 documented as of this encounter (statuses as of 08/04/2024) Immunizations Name Administration Dates Next Due COVID-19 mRNA, LNP-s, No Pre serve, 2-Dose Series ([employer]) 02/01/2021,01/08/2021 DTaP Dipth/Tet/Acell Pertussis (Infanrix), Peds 05/06/2007 [...] money to get more. Never true 03/14/2024 [place] Depression Scale Answer Date Recorded [place] Depression Scale Total 0 03/14/2024 The thought [...] Sign Reading Time Taken Comments Blood Pressure 128/84 08/04/2024 11:40 AM EST Pulse - - Temperature - - Respiratory Rate - - Oxygen Saturation - - Inhaled Oxygen Concentration - - Weight 62.1 kg (137 lb) 08/04/2024 11:40 AM EST Height 169.5 cm (5' 6.75") 08/04/2024 11:[address] Body Mass Index 21.62 08/04/2024 11:40 AM EST documented in this encounter Progress Notes * Laurie Magallon PA-C - 08/04/2024 12:58 PM EST 30w4d No concerns. Denies LOF, VB, contractions. Baby is active. Baby tachy with doppler 160's-170's. Baby visibly moving. Doppler held. Heart rate decreased to 155briefly. However baby remained active and heart rate increased. NST completed. ASSESSMENT assessment with Non-stress Test completed on 08/04/2024 at 30.4 weeks gestation for indication of r/o tachycardia heart baseline: 150 bpm Variability: Moderate Decelerations: absent Accelerations: present Contractions: None NST start time: 13:07 NST stop time: 13:42 NST strip reviewed, interpreted, and approved by OB provider, Laurie Magallon PA-C. NST strip stored in clinic storage file RTC in 2 weeks Laurie Magallon PA-C documented in this encounter Nursing Notes * Sera Stockton LPN - 08/04/2024 11:42 AM EST 30w4d Denies concerns documented in this encounter Plan of Treatment Upcoming Encounters Date Type Department Care Team (Late st Contact Info) Description 08/25/2024 11:30 AM EST [facility] [address] [place] [address] Sariah Willams CRNP [address] [place] [address] Health Maintenance Due Date Last Done Comments HPV (Gardasil) Vaccine (3 - 3-dose series) 02/24/2021 10/28/2020, 08/26/2020 Depression Screening 02/24/2022 02/24/2021 COVID-19 Vaccine ( - season) 2024 02/01/2021, 01/08/2021 Gonorrhea / Chlamydia [...] Advance Directives occurred with: Patient Care Teams Event Host Relationship Specialty Start Date End Date Nitish Goodman DO [address] [place] [address] PCP - General Family Medicine 07/23/20 documented as of this encounter
--- OUTSIDE RECORDS SUMMARY | 2024-10-08 23:29 | External Medical Summary ---
Author Name Unknown Address Unknown Organization [facility] [place] [address] [place] [address] Laboratory Report Ordering Provider Test Date Status WANG MAGAÑA 2024 13:59:01 Final Observation Date Value Abnormality Reference (Units ) Status Glucose [Moles/volume] in Serum or Plasma --1 hour post 50 g glucose PO 2024 13:59:01 82 70-129 (mg/dL) Final Performing Location [facility] [place] [address] [place] [address]
--- OUTSIDE RECORDS SUMMARY | 2024-10-08 23:30 | External Medical Summary | Summary of Care ---
Author Name Unknown Organization [facility] Address [address] [facility] [place] [address] Phone [phone] Care Team Providers Care Air Pumper Name Role Phone Rex Nitish Russo DO Primary Care Provider Reason for Visit * Reason Comments Outpatient Testing Encounter Details Date Type Department Care Team (Late st Contact Info) Description 05/11/2024 10:50 AM EDT Laboratory Laboratory, [facility] [address] [place] [id number] [facility] [address] [place] [address] Arrived Allergies Active Allergy Reactions Criticality Noted Date [...] Seasonal Influenza Virus Vac cine, Unspecified Formulation 05/28/2021,05/30/2019,07/13/2018,05/22,10/10/2015,10/26/2013,08/04/20,05/17/2009,08/07/2008,07/12/2006,1 2002 Seasonal Influenza, PF, 6 M & [...] money to get more. Never true 03/14/2024 [place] Depression Scale Answer Date Recorded [place] Depression Scale Total 0 03/14/2024 The thought [...] 03/14/2024 Does the household have a re lar source of income? (Household - for ages [...] 05/11/2024 2:20 PM EDT Office Visit Family Practice [facility] [address] [place] [address] Nitish Goodman DO [address] [place] [address] 05/26/2024 9:30 AM EDT Imaging Radiology [facility] [address] [place] [address] 06/09/2024 10:30 AM EDT Office Visit Gynecology/Obstetrics [facility] [address] [place] [address] Gisselle Lou CRNP [address] [place] [address] Health Maintenance Due Date Last Done Comments HPV (Gardasil) Vaccine (3 - 3-dose series) 02/24/2021 10/28/2020, 08/26/2020 Depression Screening 02/24/2022 02/24/2021 Yearly Wellness Visit 05/09/2023 05/09/2022 , 07/23/2020, 05/12/2019, Additional history exists COVID-19 Vaccine (3 - 2022- season) 2023 [...] Not on filedocumented as of this encounter Advance Directives * Full Code (Latest Code Status on File) Date Activated Date Inactivated Comments 06/09/2023 6:40 AM 06/09/2023 3:41 PM This order r eflects the patients wishes and were consensually agreed upon. Question Answer Comments Discussion of Advance Directives occurred with: Patient Care Teams Air Pumper Relationship Specialty Start Date End Date Nitish Goodman DO [address] [place] [address] PCP - General Family Medicine 07/23/20 documented as of this encounter
--- OUTSIDE RECORDS SUMMARY | 2024-10-08 23:30 | External Medical Summary | Summary of Care ---
Author Name Unknown Organization [facility] [address] [place] [address] Phone [phone] Care Team Providers Care Feed Handler Name Role Phone Rex Nitish Orantesbenjie Primary Care Provider Reason for Visit * Reason Onset Date Comments Order Request 02/09/2024 Encounter Details Date Type Department Care Team (Late st Contact Info) Description 02/09/2024 Telephone Gynecology/Obstetrics [facility] [address] [place] [address] Parul Moraes MD [address] [place] [address] Order Request Allergies Active Allergy Reactions Criticality Noted Date Comments Amoxicillin High 12/02/2019 Tolerated cephalexin in past Sulfamethoxazole-Trimethoprim Rash High 2017 Clavulanic Acid High 12/02/2019 Sulfamethoxazole 12/02/2019 Trimethoprim 12/02/2019 documented as of this encounter (statuses as of 05/10/2024) Medications Medication Sig Dispensed Refills Start Date End Date Status Fluocinonide 0.05 % External SolutionIndicati ons:Psoriasis Apply to scalp after bathing as needed 60 mL 3 05/26/2023 4 Discontinue d(Medicatio n List Clean Up) Acetaminophen 500 MG Oral Tablet (Tylenol) Take 1 Tablet by mouth every 6 hours as needed for Pain, Mild. 30 Tablet 06/09/2023 4 Discontinue d(Medicatio n List Clean Up) Triamcinolone Acetonide 0.1 % External Ointment (Aristocort)Shelli cations:Psoriasi s vulgaris Apply to psoriasis nightly as needed (body) 90 g 2 09/08/2023 4 Discontinue d(Medicatio n List Clean Up) Pimecrolimus 1 % External Cream (Elidel)Indicati ons:Psoriasis vulgaris Apply to face nightly as needed for psoriasis 60 g 2 09/08/2023 4 Discontinue d(Medicatio n List Clean Up) Tretinoin 0.025 % External Cream Apply a pea-sized amount to clean and moisturized face twice weekly 45 g 11/10/2023 4 Discontinue d(Medicatio n List Clean Up) Clindamycin Phosphate 1 % External Solution Apply to face daily in morning 60 mL 1 12/08/2023 4 Discontinue d(Medicatio n List Clean Up) predniSONE 20 MG Oral Tablet (Deltasone) Take 4 tabs daily for 2 days, 3 tabs daily for 2 days, 2 tabs daily for 2 days, 1 tab daily for 2 days 20 Tablet 01/27/2024 4 Discontinue d(Medicatio n List Clean Up) Doxycycline Hyclate 100 MG Oral CapsuleIndicatio ns:Chlamydia infection Take 1 Capsule by mouth in the morning and 1 Capsule before bedtime. Before or after meals for seven days.. 14 Capsule 02/09/2024 4 Discontinue d(Medicatio n List Clean Up) Doxycycline Hyclate 100 MG Oral CapsuleIndicatio ns:Chlamydia infection Take 1 Capsule by mouth in the morning and 1 Capsule before bedtime. Before or after meals for seven days. EPT.. 14 Capsule 02/09/2024 4 Discontinue d(Medicatio n List Clean Up) documented as of this encounter (statuses as of 05/10/2024) Active Problems Problem Noted Date Diagnosed Date [...] witho ut status migrainosus, not intractable 09/23/2015 documented as of this encounter (statuses as of 05/10/2024) Resolved Problems Problem Noted Date Diagnosed Date Resolved Date Oral contraceptive use 12/23/201809/17 Migraine without aura and wi thout status migrainosus, not intractable 12/23/2018 07/30/2021 Routine child health exam 07/26/2003 VACCIN FOR DISEASE NEC 07/26/200308/04 documented as of this encounter (statuses as of 05/10/2024) Immunizations Name Administration Dates Next Due COVID-19 [...] Tobacco: Never Alcohol Use Standard Drinks/Week Comments Yes 0 (1 standard drink = 0.6 oz [...] money to get more. Never true 03/14/2024 [place] Depression Scale Answer Date Recorded [place] Depression Scale Total 0 03/14/2024 The thought [...] ages 0-17 years) Not on file 03/14/2024 Sex and Gender Information Value Date Recorded Sex Assigned at Female 05/08/2022 11:38 AM EDT Gender Identity Female 05/08/2022 11:38 AM EDT Sexual Orientation Straight 05/08/2022 11 :38 AM EDT Job Start Date Occupation Industry Not on file Not on file Not on file documented as of this encounter Miscellaneous Notes * Telephone Encounter - Zoraida Navarro RN - 02/09/2024 3:16 PM EDT Pt having a D&C on 02/17 so f/u imaging is not necessary. Zoraida Navarro RN 02/09/2024 3:16 PM * Telephone Encounter - Ann Nicholson OSA - 02/09/2024 3:09 PM EDT Pt needs a 2 wk f/u for a transvaginal ob US. Please place order. documented in this encounter Plan of Treatment Upcoming Encounters Date Type Department Care Team (Late st Contact Info) Description 05/11/2024 10:30 AM EDT Office Visit Gynecology/Obstetrics [facility] [address] [place] [address] Gisselle Lou CRNP [address] [place] [address] 05/11/2024 2:20 PM EDT Office Visit [facility] [address] [place] [address] Nitish Goodman DO [address] [place] [address] Health Maintenance Due Date Last Done Comments HPV (Gardasil) Vaccine (3 - 3-dose series) 02/24/2021 10/28/2020, 08/26/2020 Depression Screening 02/24/2022 02/24/2021 Yearly Wellness Visit 05/09/2023 05/09/2022 , 07/23/2020, 05/12/2019, Additional history exists COVID-19 Vaccine (3 - 2022-24 season) 2023 02/01/2021, 01/08/2021 DTaP,Tdap,and Td Vaccines [...] Advance Directives occurred with: Patient Care Teams Feed Handler Relationship Specialty Start Date End Date Nitish Goodman DO [address] [place] [address] PCP - General Family Medicine 07/23/20 documented as of this encounter
--- OUTSIDE RECORDS SUMMARY | 2024-10-08 23:30 | External Medical Summary | Summary of Care ---
Author Name Unknown Organization [facility] Address [address] [facility] [place] [address] Phone [phone] Care Team Providers Care Travel Registered Nurse Nicu Name Role Phone Rex Nitish Orantesbenjie Primary Care Provider Reason for Visit * Reason Comments Return Visit Encounter Details Date Type Department Care Team (Late st Contact Info) Description 04/13/2024 9:15 AM EDT Office Visit Gynecology/Obstetric s [facility] [address] [place] [address] Sariah Willams CRNP [address] [place] [address] Supervision of normal first , antepartum*; Cystic fibrosis carrier, antepartum; White coat syndrome with diagnosis of hypertension Allergies Active Allergy Reactions Criticality Noted Date Comments Amoxicillin High 12/02/2019 Tolerated cephalexin in past Sulfamethoxazole-Trimethoprim Rash High 2017 Clavulanic Acid High 12/02/2019 Sulfamethoxazole 12/02/2019 Trimethoprim 12/02/2019 documented as of this encounter (statuses as of 04/13/2024) Medications Medication Sig Dispensed Refills Start Date End Date Status Complete Oral Capsule Therapy Pack Take by mouth. Active Clindamycin Phosphate 1 % External Solution Apply to face daily in morning 60 mL 1 12/08/2023 04/13/2024 Discontinued (Medication List Clean Up) Labetalol HCl 100 MG Oral Tablet (Normodyne)Indica tions:HTN, goal below 140/90,Gestationa l hypertension, first trimester Take 1 Tablet by mouth in the morning and 1 Tablet before bedtime. 60 Tablet 3 03/15/2024 04/13/2024 Discontinued (Medication List Clean Up) documented as of this encounter (statuses as of 04/13/2024) Active Problems Problem Noted Date Diagnosed Date [...] as of this encounter (statuses as of 04/13/2024) Resolved Problems Problem Noted Date Diagnosed Date Resolved Date Oral contraceptive use 12/23/201809/17 Migraine without aura and wi thout status migrainosus, not intractable 12/23/2018 07/30/2021 Routine child health exam 07/26/2003 VACCIN FOR DISEASE NEC 07/26/200308/04 documented as of this encounter (statuses as of 04/13/2024) Immunizations Name Administration Dates Next Due COVID-19 [...] money to get more. Never true 03/14/2024 [place] Depression Scale Answer Date Recorded [place] Depression Scale Total 0 03/14/2024 The thought [...] Sign Reading Time Taken Comments Blood Pressure 124/82 04/13/2024 9:09 AM EDT Pulse - - Temperature - - Respiratory Rate - - Oxygen Saturation - - Inhaled Oxygen Concentration - - Weight 53.1 kg (117 lb) 04/13/2024 9:09 AM EDT Height - - Body Mass Index 19.47 03/16/2024 11:15 AM EDT documented in this encounter Progress Notes * Sariah Willams CRNP - 04/13/2024 9:11 AM EDT 14w3d No pelvic pain/bleeding. Low risk Qnatal noted, having a boy. Pt's partner is here with her today. She states that she never started labetalol, BP normal today. No new HAs. Will continue to monitor;advised that official diagnosis of HTN (whether chronic or gestational) would warrant MFM referral. 4 week return MAURICE Schmidt * Carey Marcus MED ASSIST - 04/13/2024 9:09 AM EDT 14w3d Denies vaginal bleeding No concerns documented in this encounter Plan of Treatment Upcoming Encounters Date Type Department Care Team (Late st Contact Info) Description 04/21/2024 2:40 PM EDT Office Visit Family Practice [facility] [address] [place] [address] Tamika Coleman CRNP [address] [place] [address] 05/10/2024 8:20 AM EDT Telemedicine Dermatology [facility] [address] [facility] [place] [address] Hortencia Alcazar PA-C [address] [facility] [place] [address] 05/11/2024 10:30 AM EDT Office Visit Gynecology/Obstetrics [facility] [address] [place] [address] Gisselle Lou CRNP [address] [place] [address] 06/15/2024 10:40 AM EDT Office Visit Family [facility] [address] [place] [address] Nitish Goodman, [address] [place] [address] Health Maintenance Due Date Last Done Comments [...] Advance Directives occurred with: Patient Care Teams Travel Registered Nurse Nicu Relationship Specialty Start Date End Date Nitish Goodman DO [address] [place] [address] PCP - General Family Medicine 07/23/20 documented as of this encounter
--- OUTSIDE RECORDS SUMMARY | 2024-10-08 23:30 | External Medical Summary | Summary of Care ---
Author Name Unknown Organization [facility] Address [address] [address] Phone [phone] Care Team Providers Care Cattle Producers Name Role Phone Rex Nitish Russo DO Primary Care Provider Reason for Visit * Reason Comments Return Visit Encounter Details Date Type Department Care Team (Late st Contact Info) Description 05/11/2024 10:30 AM EDT Office Visit Gynecology/Obstetric s [facility] [address] [place] [id number] Gisselle Lou CRNP [address] [place] [address] Encounter for supervision of normal first in [...] mRNA, LNP-s, No Pre serve, 2-Dose Series (Novus) 02/01/2021,01/08/2021 DTaP Dipth/Tet/Acell Pertussis (Infanrix), Peds 05/06/2007 [...] money to get more. Never true 03/14/2024 [place] Depression Scale Answer Date Recorded [place] Depression Scale Total 0 03/14/2024 The thought [...] Sign Reading Time Taken Comments Blood Pressure 124/68 05/11/2024 10:09 AM EDT Pulse - - Temperature - - Respiratory Rate - - Oxygen Saturation - - Inhaled Oxygen Concentration - - Weight 54.9 kg (121 lb) 05/11/2024 10:09 AM EDT Height 165.1 cm (5' 5") 05/11/2024 10:09 AM EDT Body Mass Index 20.14 05/11/2024 10:09 AM EDT documented in this encounter Progress Notes * Gisselle Lou CRNP - 05/11/2024 10:21 AM EDT 18w3d No complaints. States she is feeling really well. BP good today Feeling a lot of FM. Denies bleeding, LOF. MSAFP today. To schedule anatomy u/s. MAURICE Saunders * Svitlana Olguin LPN - 05/11/2024 10:10 AM EDT 18w3d Denies any concerns documented in this encounter Plan of Treatment Upcoming Encounters Date Type Department Care Team (Late st Contact Info) Description 05/11/2024 10:50 AM EDT Laboratory Laboratory, [facility] [address] [place] [phone] [facility] b[facility] [address] [place] [id number] Arrived 05/11/2024 2:20 PM EDT Office Visit Family Practice [facility] [address] [place] [address] Nitish Goodman DO [address] [place] [address] 05/26/2024 9:30 AM EDT Imaging Radiology [facility] [address] [place] [address] 06/09/2024 10:30 AM EDT Office Visit Gynecology/Obstetrics [facility] [address] [place] [phone] Gisselle Lou CRNP [address] [place] [address] Pending Results Name Type Priority Associated Diagnoses Date /Time MATERNAL SERUM AFP Lab Routine Encounter for supervision of normal first in second trimester 05/11/2024 10:25 AM EDT Scheduled Orders Name Type Priority Associated Diagnoses Orde r Schedule US PREG SINGLE/1ST GEST, 14 WEEKS OR LATER Medical Imaging Routine Encounter for supervision of normal first in second trimester Expected: 05/18/2024 (Approximate), Expires: 06/11/2025 Health Maintenance Due Date Last Done Comments HPV (Gardasil) Vaccine (3 - 3-dose series) 02/24/2021 10/28/2020, 08/26/2020 Depression Screening 02/24/2022 02/24/2021 Yearly Wellness Visit 05/09/2023 05/09/2022 , 07/23/2020, 05/12/2019, Additional history exists COVID-19 Vaccine (3 - season) 2023 02/01/2021, 01/08/2021 DTaP,Tdap,and Td Vaccines [...] Advance Directives occurred with: Patient Care Teams Cattle Producers Relationship Specialty Start Date End Date Nitish Goodman DO [address] [place] [id number] PCP - General Family Medicine 07/23/20 documented as of this encounter
--- OUTSIDE RECORDS SUMMARY | 2024-10-08 23:30 | External Medical Summary ---
Author Name Unknown Address Unknown Organization : Laboratory Report Ordering Provider Test Date Status DAVID EPPS 05/11/2024 10:25:50 Final Observation Date Value Abnormality Reference (Units ) Status INTERPRETATION 05/11/2024 10:25:50 SEE BELOW Final Screen negative for open NTD . RISK FOR ONTD 05/11/2024 10:25:50 1:4506 Final CALC'D GESTATIONAL AGE 0805/11/2024 10:25:50 18.4 Final AFP, SERUM 05/11/2024 10:25:50 72.6 (ng/mL) Final AFP MOM 05/11/2024 10:25:50 1.32 Final Reference Range:
NTD <2 .50
IDD <1.90
TWINS <4.00
TWINS IDD <3.50
TRIPLETS <4.50
The AFP test result indicates that this patient is
screen negative for open NTD. It should be noted
that normal test results can never guarantee the
of a normal baby and that 2-3% of newborns
have some type of physical or mental defect, many
of which are undetectable through any known
diagnostic technique.
This is a screening test, not a diagnostic test.
This risk assessment report is based in part on
demographic data provided by the ordering
physician. Please notify the laboratory promptly
if any data are incorrect. For assistance with
recalculations, please call your local [facility] laboratory. For assistance with
interpretation of these results, please contact
your Local [facility] genetic counselor or
call [phone] ([phone]).
Interpretive Cutoffs
Screen Positive for Open NTD:
> or = 2.50 adjusted MOM
> or = 1.90 adjusted MOM for insulin-dependent diabetics
> or = 4.00 adjusted MOM for twins
> or = 3.50 adjusted MOM for twins insulin-dependent diabetics
> or = 4.50 adjusted MOM for triplets
For additional information, please refer to
[email or web address]
(This link is being provided for
informational/educational purposes only.) DATE OF 05/11/2024 10:25:50 2002 Final COLLECTION DATE 05/11/2024 10:25:50 05/11/2024 Final MATERNAL WEIGHT 05/11/2024 10:25:50 120 (lbs ) Final EST'D DATE OF DELIVERY 05/11/2024 10:25:50 10/09/2024 Final JAKOB DETERMINED BY 05/11/2024 10:25:50 NOT GIVEN Final MOTHER'S ETHNIC ORIGIN 05/11/2024 10:25:50 WHITE Final NUMBER OF FETUSES 05/11/2024 10:25:50 1 Final INSULIN DEPEND DIABETIC 05/11/2024 10:25:50 NO Final REPEAT SPECIMEN 05/11/2024 10:25:50 NO Final HX OF NEURAL TUBE DEFECTS 05/11/2024 10:25:50 NO Final PREV DOWN SYND 05/11/2024 10:25:50 NO Final DONOR EGG 05/11/2024 10:25:50 NO Final DONOR AGE: EGG RETRIEVAL 05/11/2024 10:25:50 NOT GIVEN Final Test performed by [facility]
[id number] [address] [facility] [address] [facility],
[place] [address]

[employer]ewable Energy Project Manager: Tawnya Ferguson MD,PHD,DEVAN
Test Reported by Doc Thompson,
[facility],
[address] [place], [place]
Neri Can M.D., Ph.D., Director of Laboratories
, [facility] [id number] Performing Location
[2024-10-09] MEDS: SODIUM CHLORIDE 0.9% 1,000 ML IV SCH ×2 (00:20→03:35)
[2024-10-09] MEDS ORDERED: LIDOCAINE 1% LOCAL 20 ML VIAL INFIL PRN (03:40)
--- NOTE | 2024-10-09 04:10 | History & Physical Report ---
Date of Service October 09, 2024 Assessment & Plan (1) : Plan: Admit in labor epidural pending History of Present Illness Chief Complaint: contractions Primary Care Provider: Nitish Goodman, DO 24 F P0000 at 40 weeks preseents to L&D in early labor. GBS is negative. course is unremarkable. Allergies Allergy/AdvReac Type Severity Reaction Status Date / Time amoxicillin [From Augmentin] Allergy Intermediate rash, Verified 11/10/22 23:13 tongue swelling, it was "hard to breathe" clavulanic acid Allergy Intermediate rash, Verified 11/10/22 23:13 [From Augmentin] tongue swelling, it was "hard to breathe" Penicillins Allergy Intermediate Hives Verified 11/10/22 23:13 sulfamethoxazole Allergy Intermediate Rash Verified 11/10/22 23:13 [From Bactrim] trimethoprim [From Bactrim] Allergy Intermediate Rash Verified 11/10/22 23:13 Home Medications Medication Instructions Recorded Confirmed Type fcwjgqxa-grd-Qe-FA 1 mg 1 tab PO DAILY 10/08/24 10/08/24 History tablet Patient History Medical History No significant past medical history Family History Other No pertinent family history Social History Smoking Status: Never smoker Hx Alcohol Use: No Hx Substance Use: No Preferred Language: Yi Communication Ability: Effective Office Auditor Required: No Beliefs That Will Affect Care: None marital status: Single Current Living Situation: Parent and Significant Other Current Living Situation Comment: S/O and mother of zenaida. Other Information That Helps Us Care for You: No Feels Safe at Home: Yes Safety Concerns: Feels Safe At This Time Assistive Devices: None OB History primip ELECTRO WINNING OPERATOR History neg Review of Systems All systems reviewed & are unremarkable except as noted in HPI & below Physical Exam Constitutional: WD/WN, vitals as above Eyes: PERRL, conjunctivae normal, anicteric sclerae Respiratory: normal respiratory effort, lungs clear to auscultation Cardiovascular: Rate/Rhythm: regular rate and regular rhythm Gastrointestinal (Abdomen): Inspection/Auscultation: abdomen normal to inspection Musculoskeletal: Extremities: extremities normal to inspection Skin: no rashes, warm and dry Neurologic: patellar DTR's 2+ bilat, sensation intact Psychiatric: A+Ox3, euthymic affect Genitourinary: Manual OB Exam: + cervical dilation 4 cm, + cervical effacement 50% and + station -2 OB Exam Monitor Tracing: + external FHT monitor used, + external uterine monitor used, + category I and + normal FHT variability Results & Data Vital Signs (Past 12 Hours) Vital Signs Temp Pulse Resp BP Pulse Ox 10/09/24 04:02 82 98 10/09/24 03:57 84 L 10/09/24 03:57 254 H 10/09/24 03:57 224 H 84 L 10/08/24 23:41 89 135/85 10/08/24 23:36 36.6 C 16 Monitoring External Monitor Cat 1 (1) Weeks of gestation: 40 weeks Qualified Code(s): Z3A.40 - 40 weeks gestation of
[2024-10-09 04:14] LABS: Hemoglobin 14.6 g/dl (12.0-16.0); Mean Corpuscular Hemoglobin 33.5 pg (25.0-34.0); Mean Corpuscular Hgb Conc 35.6 g/dL (32.0-36.0); Platelet Count 257 K/uL (130-400); RDW Coefficient of Variation 11.9 % (11.5-14.5); RDW Standard Deviation 41.2 fL (36.4-46.3); Red Blood Count 4.36 M/uL (4.20-5.40); White Blood Count 18.34 K/ul (4.8-10.8)
--- NOTE | 2024-10-09 04:19 | Anesthesiology Consultation ---
Date of Service October 09, 2024 Assessment & Plan Chart Review Chart Review: Acceptable Risk for Labor Epidural Consults Requested none History Height/Weight Height: 5 ft 4 in Weight: 68.583 kg Allergies Allergy/AdvReac Type Severity Reaction Status Date / Time amoxicillin [From Augmentin] Allergy Intermediate rash, Verified 11/10/22 23:13 tongue swelling, it was "hard to breathe" clavulanic acid Allergy Intermediate rash, Verified 11/10/22 23:13 [From Augmentin] tongue swelling, it was "hard to breathe" Penicillins Allergy Intermediate Hives Verified 11/10/22 23:13 sulfamethoxazole Allergy Intermediate Rash Verified 11/10/22 23:13 [From Bactrim] trimethoprim [From Bactrim] Allergy Intermediate Rash Verified 11/10/22 23:13 Medications Home Medications Medication Instructions Recorded Confirmed Last Taken nzjujugz-lld-By-FA 1 mg 1 tab PO DAILY 10/08/24 10/08/24 1 Day Ago tablet ~10/07/24 Past Medical History Medical History No significant past medical history Past Family History Family History Other No pertinent family history Social History Smoking Status: Never smoker Hx Alcohol Use: No Hx Substance Use: No substance use type: marijuana Substance Use Type Other:: medical marijuana Last Used Substance: Days (ago) Last Used Substance Other:: Patient declining Physical Exam Vital Signs Last Vital Signs Temp 36.6 C 10/08/24 23:36 Pulse 79 10/09/24 04:17 Resp 16 10/08/24 23:36 BP 135/85 10/08/24 23:41 Pulse Ox 99 10/09/24 04:17 Testing Laboratory Results 10/09/24 04:02
[2024-10-09] MEDS ORDERED: NALBUPHINE HCL INJ 10 MG/ML AMP IV PRN (04:20)
[2024-10-09] MEDS ORDERED: LIDOCAINE 2% MPF LOCAL 5 ML VIAL EPI PRN (04:20)
[2024-10-09] MEDS ORDERED: ROPIVACAINE 0.5% PF 5 MG/ML 20 ML VIAL EPI PRN (04:20)
[2024-10-09] MEDS ORDERED: BUPIVACAINE 0.25% PF 30 ML VIAL EPI PRN (04:20)
[2024-10-09] MEDS ORDERED: NALOXONE HCL 0.4 MG/1 ML VIAL/CARP IV PRN (04:20)
[2024-10-09] MEDS ORDERED: NALOXONE HCL 1 MG in SODIUM CHLORIDE 0.9% 1,000 ML IV PRN (04:20)
[2024-10-09] MEDS ORDERED: diphenhydrAMINE 50 MG/ML VIAL IV PRN (04:20)
[2024-10-09] MEDS ORDERED: ePHEDrine sulfate 50 MG/ML AMP IV PRN (04:20)
[2024-10-09] MEDS ORDERED: SODIUM CHLORIDE 0.9% PF INJ 10 ML VIAL EPI PRN (04:20)
[2024-10-09] MEDS ORDERED: fentaNYL citrate PF 100 MCG/2 ML VIAL EPI PRN (04:20)
[2024-10-09] MEDS: LIDOCAINE 2%/EPINEPHRINE 1:200,000 20 ML PF ONE (04:34)
[2024-10-09] MEDS: fentANYL 2 MCG/ML BUPIVacaine 0.125%-NSS 100ML BAG ONE (04:34)
[2024-10-09] MEDS: SODIUM CHLORIDE 0.9% PF INJ 10 ML VIAL ONE (05:31)
[2024-10-09] MEDS: BUPIVACAINE 0.25% PF 30 ML VIAL ONE (05:31)
[2024-10-09] MEDS: fentaNYL citrate PF 100 MCG/2 ML VIAL ONE (05:31)
[2024-10-09] MEDS: fentaNYL citrate PF 100 MCG/2 ML VIAL EPI STA (05:32)
[2024-10-09] MEDS: ePHEDrine sulfate 50 MG/ML AMP ONE (05:32)
[2024-10-09] MEDS: LIDOCAINE 2%/EPINEPHRINE 1:200,000 20 ML PF EPI STA (05:32)
[2024-10-09] MEDS: SODIUM CHLORIDE 0.9% PF INJ 10 ML VIAL EPI STA (05:32)
[2024-10-09] MEDS: BUPIVACAINE 0.25% PF 30 ML VIAL EPI STA (05:32)
[2024-10-09] MEDS ORDERED: OXYTOCIN 30 UNITS/NSS 30 UNITS/500 ML BAG IV PRN ×2 (07:43→12:37)
[2024-10-09 08:36] LABS: Amphetamines+Metham, Urine Neg (Neg); Barbiturates, Urine Neg (Neg); Benzodiazepine, Urine Neg (Neg); Cocaine, Urine Neg (Neg); Fentanyl, Urine Pos (Neg); MDMA (Ecstacy), Urine Neg (Neg); Marijuana, Urine Pos (Neg); Methadone, Urine Neg (Neg); Opiate, Urine Neg (Neg); Phencyclidine, Urine Neg (Neg)
[2024-10-09] MEDS ORDERED: NURSING L&D Epidural Breakthrough Pain Update ONE (09:46)
--- NOTE | 2024-10-09 10:00 | Obstetrical Progress Note ---
Date of Service October 09, 2024 Assessment & Plan (1) : Plan: Pt doing well No complaint FHR; CAT1 VE; 10/bulging membranes AROM with Amnio hook - Clear fluid Ctx:Irreg Admission and Anticipated Discharge Date Admission Date: October 09, 2024 Results & Data Vital Signs (Past 12 Hours) Vital Signs Temp Pulse Resp BP Pulse Ox 10/09/24 09:52 100 H 98 10/09/24 09:47 83 96 10/09/24 09:42 79 96 10/09/24 09:39 72 127/78 10/09/24 09:37 95 H 96 10/09/24 09:32 79 95 10/09/24 09:27 77 95 10/09/24 09:24 74 124/75 10/09/24 09:22 74 95 10/09/24 09:17 81 95 10/09/24 09:12 83 96 10/09/24 09:08 80 180/69 H 10/09/24 09:07 76 96 10/09/24 09:02 80 97 10/09/24 08:57 84 96 10/09/24 08:52 91 H 95 10/09/24 08:47 90 96 10/09/24 08:42 89 96 10/09/24 08:37 94 H 97 10/09/24 08:35 213 H 92 10/09/24 08:32 88 97 10/09/24 08:30 16 10/09/24 08:30 16 10/09/24 08:27 83 96 10/09/24 08:23 91 H 124/79 10/09/24 08:22 90 97 10/09/24 08:17 94 H 98 10/09/24 08:12 96 H 96 10/09/24 08:08 93 H 122/73 10/09/24 08:07 95 H 97 10/09/24 08:02 105 H 96 10/09/24 08:00 16 10/09/24 08:00 16 10/09/24 07:57 97 H 97 10/09/24 07:53 100 H 140/74 10/09/24 07:52 89 98 10/09/24 07:47 87 98 10/09/24 07:42 83 97 10/09/24 07:38 75 127/76 10/09/24 07:37 76 96 10/09/24 07:32 78 97 10/09/24 07:30 16 10/09/24 07:30 16 10/09/24 07:27 80 97 10/09/24 07:22 89 96 10/09/24 07:17 93 H 97 10/09/24 07:12 92 H 96 10/09/24 07:08 85 126/71 10/09/24 07:07 96 H 96 10/09/24 07:02 91 H 97 10/09/24 07:00 36.7 C 16 10/09/24 07:00 16 10/09/24 07:00 16 10/09/24 06:57 94 H 97 10/09/24 06:53 78 131/70 10/09/24 06:52 88 96 10/09/24 06:47 78 96 10/09/24 06:42 77 96 10/09/24 06:38 75 128/68 10/09/24 06:37 78 96 10/09/24 06:32 80 96 10/09/24 06:30 16 10/09/24 06:30 16 10/09/24 06:27 77 96 10/09/24 06:24 75 128/71 10/09/24 06:22 76 96 10/09/24 06:17 76 96 10/09/24 06:12 74 96 10/09/24 06:09 76 129/73 10/09/24 06:07 76 96 10/09/24 06:02 80 96 10/09/24 06:00 16 10/09/24 06:00 16 10/09/24 05:57 78 97 10/09/24 05:53 77 124/65 10/09/24 05:52 83 97 10/09/24 05:47 87 97 10/09/24 05:45 16 10/09/24 05:45 16 10/09/24 05:42 81 96 10/09/24 05:38 82 122/60 10/09/24 05:37 94 H 96 10/09/24 05:32 90 97 10/09/24 05:30 16 10/09/24 05:30 16 10/09/24 05:27 93 H 97 10/09/24 05:22 90 129/72 97 10/09/24 05:17 85 136/74 96 10/09/24 05:15 16 10/09/24 05:15 16 10/09/24 05:12 98 H 97 10/09/24 05:07 82 96 10/09/24 05:03 81 137/72 10/09/24 05:02 84 97 10/09/24 05:00 18 10/09/24 05:00 18 10/09/24 04:57 98 10/09/24 04:57 90 10/09/24 04:57 93 H 133/79 10/09/24 04:56 90 139/82 10/09/24 04:55 84 131/74 10/09/24 04:54 96 H 141/94 H 10/09/24 04:53 86 132/75 10/09/24 04:52 96 10/09/24 04:52 84 10/09/24 04:52 90 139/79 10/09/24 04:51 85 138/78 10/09/24 04:50 99 H 147/86 H 10/09/24 04:49 94 H 141/88 H 10/09/24 04:48 98 H 142/85 H 10/09/24 04:47 97 10/09/24 04:47 95 H 10/09/24 04:47 75 134/82 10/09/24 04:46 93 H 139/87 10/09/24 04:45 84 18 133/99 10/09/24 04:44 83 140/87 10/09/24 04:42 97 H 99 10/09/24 04:37 77 98 10/09/24 04:32 83 98 10/09/24 04:27 79 98 10/09/24 04:22 74 97 10/09/24 04:17 79 99 10/09/24 04:12 95 H 97 10/09/24 04:07 86 97 10/09/24 04:02 82 98 10/09/24 03:57 84 L 10/09/24 03:57 254 H 10/09/24 03:57 224 H 84 L 10/09/24 03:54 36.8 C 10/08/24 23:41 89 135/85 10/08/24 23:36 36.6 C 16 (1) Weeks of gestation: 40 weeks Qualified Code(s): Z3A.40 - 40 weeks gestation of
[2024-10-09] MEDS: fentANYL 2 MCG/ML BUPIVacaine 0.125%-NSS 100ML BAG EPI PRN (11:17)
[2024-10-09] MEDS: OXYTOCIN 30 UNITS/NSS 30 UNITS/500 ML BAG IV PRN (11:42)
[2024-10-09] MEDS: miSOPROStoL 200 MCG TAB ONE (11:45)
[2024-10-09] MEDS ORDERED: miSOPROStoL 200 MCG TAB PR ONE (12:37)
[2024-10-09] MEDS ORDERED: DIPHTHER/TETAN/PERTUS Vaccine (Tdap, Adol/Adult) 0.5mL IM ONE (12:37)
[2024-10-09] MEDS ORDERED: bisacodyL 10 MG SUPP PR PRN (12:37)
[2024-10-09] MEDS ORDERED: HYDROCORTISONE ACETATE 25 MG SUPP PR PRN (12:37)
--- NOTE | 2024-10-09 12:37 | Obstetrical Progress Note ---
Date of Service October 09, 2024 Assessment & Plan (1) : delivery note recorded Weeks of gestation: 40 weeks Qualified Code(s): Z3A.40 - 40 weeks gestation of Results & Data Vital Signs (Past 12 Hours) Vital Signs Temp Pulse Resp BP Pulse Ox 10/09/24 12:24 92 H 168/81 H 10/09/24 12:23 96 H 168/114 H 10/09/24 12:08 85 130/87 10/09/24 12:00 36.7 C 16 10/09/24 11:53 109 H 127/109 H 10/09/24 11:39 155 H 139/101 H 10/09/24 11:38 20 10/09/24 11:38 20 10/09/24 11:37 112 H 98 10/09/24 11:35 117 H 91 10/09/24 11:32 93 H 99 10/09/24 11:30 16 10/09/24 11:30 16 10/09/24 11:27 97 H 98 10/09/24 11:23 81 134/88 10/09/24 11:22 80 98 10/09/24 11:17 85 97 10/09/24 11:12 88 97 10/09/24 11:08 93 H 133/87 10/09/24 11:07 105 H 96 10/09/24 11:02 90 98 10/09/24 11:00 16 10/09/24 11:00 10/09/24 10:57 91 H 96 10/09/24 10:54 90 124/80 10/09/24 10:52 81 96 10/09/24 10:47 94 H 97 10/09/24 10:42 92 H 97 10/09/24 10:39 87 133/87 10/09/24 10:37 93 H 98 10/09/24 10:32 88 96 10/09/24 10:27 95 H 98 10/09/24 10:24 90 137/87 10/09/24 10:22 134 H 98 10/09/24 10:17 99 H 97 10/09/24 10:12 92 H 97 10/09/24 10:09 85 128/81 10/09/24 10:07 98 H 97 10/09/24 10:02 94 H 97 10/09/24 10:00 16 10/09/24 10:00 16 10/09/24 09:57 93 H 97 10/09/24 09:56 83 138/84 10/09/24 09:52 100 H 98 10/09/24 09:51 36.7 C 10/09/24 09:47 83 96 10/09/24 09:42 79 96 10/09/24 09:39 72 127/78 10/09/24 09:37 95 H 96 10/09/24 09:32 79 95 10/09/24 09:27 77 95 10/09/24 09:24 74 124/75 10/09/24 09:22 74 95 10/09/24 09:17 81 95 10/09/24 09:12 83 96 10/09/24 09:08 80 180/69 H 10/09/24 09:07 76 96 10/09/24 09:02 80 97 10/09/24 08:57 84 96 10/09/24 08:52 91 H 95 10/09/24 08:47 90 96 10/09/24 08:42 89 96 10/09/24 08:37 94 H 97 10/09/24 08:35 213 H 92 10/09/24 08:32 88 97 10/09/24 08:30 16 10/09/24 08:30 16 10/09/24 08:27 83 96 10/09/24 08:23 91 H 124/79 10/09/24 08:22 90 97 10/09/24 08:17 94 H 98 10/09/24 08:12 96 H 96 10/09/24 08:08 93 H 122/73 10/09/24 08:07 95 H 97 10/09/24 08:02 105 H 96 10/09/24 08:00 16 10/09/24 08:00 16 10/09/24 07:57 97 H 97 10/09/24 07:53 100 H 140/74 10/09/24 07:52 89 98 10/09/24 07:47 87 98 10/09/24 07:42 83 97 10/09/24 07:38 75 127/76 10/09/24 07:37 76 96 10/09/24 07:32 78 97 10/09/24 07:30 16 10/09/24 07:30 16 10/09/24 07:27 80 97 10/09/24 07:22 89 96 10/09/24 07:17 93 H 97 10/09/24 07:12 92 H 96 10/09/24 07:08 85 126/71 10/09/24 07:07 96 H 96 10/09/24 07:02 91 H 97 10/09/24 07:00 36.7 C 16 10/09/24 07:00 16 10/09/24 07:00 16 10/09/24 06:57 94 H 97 10/09/24 06:53 78 131/70 10/09/24 06:52 88 96 10/09/24 06:47 78 96 10/09/24 06:42 77 96 10/09/24 06:38 75 128/68 10/09/24 06:37 78 96 10/09/24 06:32 80 96 10/09/24 06:30 16 10/09/24 06:30 16 10/09/24 06:27 77 96 10/09/24 06:24 75 128/71 10/09/24 06:22 76 96 10/09/24 06:17 76 96 10/09/24 06:12 74 96 10/09/24 06:09 76 129/73 10/09/24 06:07 76 96 10/09/24 06:02 80 96 10/09/24 06:00 16 10/09/24 06:00 16 10/09/24 05:57 78 97 10/09/24 05:53 77 124/65 10/09/24 05:52 83 97 10/09/24 05:47 87 97 10/09/24 05:45 16 10/09/24 05:45 16 10/09/24 05:42 81 96 10/09/24 05:38 82 122/60 10/09/24 05:37 94 H 96 10/09/24 05:32 90 97 10/09/24 05:30 16 10/09/24 05:30 16 10/09/24 05:27 93 H 97 10/09/24 05:22 90 129/72 97 10/09/24 05:17 85 136/74 96 10/09/24 05:15 16 10/09/24 05:15 16 10/09/24 05:12 98 H 97 10/09/24 05:07 82 96 10/09/24 05:03 81 137/72 10/09/24 05:02 84 97 10/09/24 05:00 18 10/09/24 05:00 18 10/09/24 04:57 98 10/09/24 04:57 90 10/09/24 04:57 93 H 133/79 10/09/24 04:56 90 139/82 10/09/24 04:55 84 131/74 10/09/24 04:54 96 H 141/94 H 10/09/24 04:53 86 132/75 10/09/24 04:52 96 10/09/24 04:52 84 10/09/24 04:52 90 139/79 10/09/24 04:51 85 138/78 10/09/24 04:50 99 H 147/86 H 10/09/24 04:49 94 H 141/88 H 10/09/24 04:48 98 H 142/85 H 10/09/24 04:47 97 10/09/24 04:47 95 H 10/09/24 04:47 75 134/82 10/09/24 04:46 93 H 139/87 10/09/24 04:45 84 18 133/99 10/09/24 04:44 83 140/87 10/09/24 04:42 97 H 99 10/09/24 04:37 77 98 10/09/24 04:32 83 98 10/09/24 04:27 79 98 10/09/24 04:22 74 97 10/09/24 04:17 79 99 10/09/24 04:12 95 H 97 10/09/24 04:07 86 97 10/09/24 04:02 82 98 10/09/24 03:57 84 L 10/09/24 03:57 254 H 10/09/24 03:57 224 H 84 L 10/09/24 03:54 36.8 C
--- NOTE | 2024-10-09 12:41 | Delivery Summary ---
Vaginal Delivery Summary Date of Service October 09, 2024 Vaginal Delivery Summary DELIVERY NOTE Patient delivered a live infant male in left occiput anterior presentation there was no nuchal cord which was easily reduced. Infant was delivered and placed on mother's abdomen. Delayed cord clamping was performed. Cord blood is obtained Cord gasses are not obtained Meconium is absent Placenta is spontaneously delivered. Placenta appears grossly normal and has 3 vessel cord Inspection of the perineum showed bilateral periureteral tear laceration. Laceration is repaired in layers with 3-0 Vicryl in layers Rectal exam post repair showed good sphincter tone no sutures palpated in the rectum. Quantitative blood loss is 100 cc per Infants weight and scores are in the pediatric record Mother and baby are stable in in the recovery
--- NOTE | 2024-10-09 14:21 | Anesthesia Procedure Note ---
Date of Service October 09, 2024 Anesthesia Post Epidural Note Vital Signs Vital Signs: Temp Pulse Resp BP Pulse Ox 36.7 C 88 18 139/70 98 10/09/24 12:00 10/09/24 14:04 10/09/24 13:00 10/09/24 14:04 10/09/24 11:37 Pain Intensity Abdomen: Pain Intensity: 0 Notes Mental Status: alert / awake / arousable and participated in evaluation Nausea / Vomiting: adequately controlled Pain: adequately controlled Airway Patency, RR, SpO2: stable & adequate BP & HR: stable & adequate Hydration State: stable & adequate Neuraxial Anesthesia: was administered and sensory block is resolving Anesthetic Complications: no major complications apparent Epidural: Removed without complications and With tip intact
[2024-10-09] MEDS: BENZOCAINE 20% SPRY 85 APPLN/85 GM CAN EXT PRN (15:18)
[2024-10-09] MEDS: ACETAMINOPHEN 325 MG TAB PO PRN (15:47)
[2024-10-09] MEDS: IBUPROFEN 600 MG TAB PO PRN (18:15)
[2024-10-09] MEDS: DOCUSATE SODIUM 100 MG CAP PO SCH (21:50)
[2024-10-10 06:34] LABS: Hematocrit (blood only) 40.3 % (37.0-47.0); Mean Corpuscular Hemoglobin 33.4 pg (25.0-34.0); Mean Corpuscular Hgb Conc 34.7 g/dL (32.0-36.0); Mean Corpuscular Volume 96.2 fL (80.0-100.0); Mean Platelet Volume 10.2 fL (9.4-12.4); Platelet Count 221 K/uL (130-400); RDW Coefficient of Variation 12.1 % (11.5-14.5); RDW Standard Deviation 42.4 fL (36.4-46.3); Red Blood Count 4.19 M/uL (4.20-5.40); White Blood Count 14.95 K/ul (4.8-10.8)
[2024-10-10] MEDS: PRENATAL VITAMIN 1 TAB PO SCH (07:47)
[2024-10-10] MEDS: bisacodyL 5 MG TABEC PO SCH (20:36)
[2024-10-10 23:41] VITALS: TEMP 98.8
[2024-10-11 06:37] LABS: Hematocrit (blood only) 39.2 % (37.0-47.0); Hemoglobin 13.9 g/dl (12.0-16.0)
--- NOTE | 2024-10-11 07:25 | Discharge Summary ---
Date of Service October 11, 2024 Admission HPI Per Admitting Provider 24 F P0000 at 40 weeks preseents to L&D in early labor. GBS is negative. course is unremarkable. Discharge Data Consultations 10/09/24 03:40 Consult Anesthesiology Stat
--- NOTE | 2024-10-11 07:46 | Discharge Summary ---
Date of Service October 11, 2024 Admission HPI Per Admitting Provider 24 F P0000 at 40 weeks preseents to L&D in early labor. GBS is negative. course is unremarkable. Admission Exam (Per Admitting) Constitutional WD/WN, vitals as above Discharge Data Consultations 10/09/24 03:40 Consult Anesthesiology Stat
--- NOTE | 2024-10-11 08:03 | Discharge Summary ---
Date of Service October 11, 2024 Admission HPI Per Admitting Provider 24 F P0000 at 40 weeks preseents to L&D in early labor. GBS is negative. course is unremarkable. Admission Exam (Per Admitting) Constitutional WD/WN, vitals as above well developed Discharge Data Consultations 10/09/24 03:40 Consult Anesthesiology Stat Hospital Course (1) No significant past medical history: (2) :
--- NOTE | 2024-10-11 08:05 | Discharge Summary ---
Date of Service October 11, 2024 Admission HPI Per Admitting Provider 24 F P0000 at 40 weeks preseents to L&D in early labor. GBS is negative. course is unremarkable. Discharge Data Consultations 10/09/24 03:40 Consult Anesthesiology Stat Discharge Instructions ACTIVITY RECOMMENDATIONS: * Gradual return to full activity over the next 2-3 weeks. * No lifting - nothing heavier than baby over the next 2-3 weeks. * Do not engage in vigorous exercise, sexual activity or sports until cleared by your physician. * Do not drive or operate any motorized equipment until cleared by your physician. * You may shower/bathe daily. BREAST CARE: If you are not breast feeding: * Wear a supportive bra 24 hours a day for one to two weeks. * Avoid stimulating your breasts and nipples as much as possible during the first few weeks after delivery. * When taking a shower, have the warm water hit your back, not breasts. * When your breasts feel full, apply ice packs. Usually three to four times a day helps ease the discomfort. * Take a mild pain medication (Tylenol/Motrin) when you are uncomfortable. If breast feeding: * Use breast milk to lubricate nipples. Lansinoh cream may be used for sore nipples. You do not need to remove cream prior to breast feeding. If using a different brand of cream, check the label for directions regarding removal of cream prior to nursing. * Wear a supportive bra. * If having problems with breasts or breast feeding, call a events solutions consultant or your health care provider. EPISIOTOMY CARE: After delivery, if you have an episiotomy (stitches), the following steps will ease discomfort and aid healing. * For the first 24 hours after delivery, place ice packs next to your episiotomy to help reduce swelling. * After the first 24 hour-period, sitz baths, either portable or in the tub, are suggested. A shower with a shower arm sprayed over the episiotomy may be comforting. * Cathi care should be done after each voiding and bowel movement. Squirt warm water from a plastic bottle over the perineum (region of the body between the anus and urinary opening) and pat dry. * Use Dermoplast to ease discomfort. Shake container. [place] directly over the episiotomy. * Place a Tucks on a clean sanitary pad next to your episiotomy. OVER THE COUNTER MEDICATION: * For discomfort or pain, you may use Acetaminophen (Tylenol), Ibuprofen (Advil), or Naproxen (Aleve) following the package directions. * For constipation you may use Colace following the package directions. SPECIAL CARE INSTRUCTIONS: When you are discharged from the hospital, it is important for you to follow the instructions listed below: * During the first week at home, you should be able to care for yourself and your baby. In addition, the usual light household activities are encouraged. * Limit your activities to the way you feel. Do not try to clean the house or move furniture. Be sensible. * If you actively engage in sports and have done so up until the time of your delivery, you may resume these activities as soon as you feel able. This may take up to one month or even longer. Use good judgment. * Continue to take your vitamins for at least six weeks after the of your baby. * Your diet need not be limited unless you were on a special diet before your delivery. Breast-feeding mothers need around 2500 calories per day and at least 64-80 ounces of fluid per day (8 to 10 glasses). * You should eat foods from the four major food groups. Crash diets or fad diets are to be avoided. Eating lean meats, fresh fruits and vegetables, low-fat dairy products, high fiber foods and a regular exercise program, will help you get back to your pre- weight without putting your health at risk. * Constipation is sometimes a problem after delivery. Take a mild laxative as needed. If breast feeding, Milk of Magnesia is acceptable to use. You may use a suppository or Fleets enema if no episiotomy. * A daily shower or tub bath is suggested. Be sure to thoroughly and gently dry the perineum. * A bloody vaginal discharge will usually continue until around four weeks post . A small amount of bleeding may continue for as long as six weeks. Vaginal discharge changes from the bright red bleeding after delivery to pink then brownish and finally yellowish-pink before becoming white and disappearing. * Bleeding may increase with activity. Your first period may come in 4-8 week s. If you are breast feeding, your period may be delayed even longer. * [place] (sex) can begin whenever both you and your partner feel comfortable and do not have any form of genital infection. It is recommended that you wait until after your return appointment and discuss with your physician. If you have questions, please talk to your health care practitioner. A condom should be used to prevent infection and . * Foreplay, gentle intercourse and lubrication is very important the first several times to prevent pain. A water-based lubricant such as K-Y jelly or Astroglide may be used. * Tampons may be used six weeks after delivery. * Douching should be avoided for 6 weeks after delivery. * If you have RH negative blood and your baby is RH positive, you will receive RHOGAM by injection prior to discharge. The nurse will give you a card to keep with you that has the date and place that you received RHOGAM after delivery. * During your care, you had a Rubella screen done to check for the presence of rubella antibodies in your blood. If your test was negative, you will receive a Rubella vaccine prior to discharge. This vaccine may cause a fever, soreness at the injection site and flu-like symptoms. If these symptoms persist, notify your health care practitioner. is not advised for three months after a Rubella vaccine. There is a higher chance of having a baby with defects if conceived within three months of getting the vaccine. * If you were discharged 24 hours from delivery or before 48 hours: Visiting nurses will come to your home 48 hours after discharge to assess you and your baby. The visiting nurse will meet with you while you are in the hospital to arrange a time and get directions to your home. * Verbalizes understanding of car seat law as reviewed with patient nursing. * Car Seat hand-out given and reviewed with patient by nursing. * Shaken baby information reviewed with patient by nursing. Call you doctor if: * Heavy bleeding (saturating several pads an hour) or passing clots the size of your fist. * A fever >101 degrees F (38.3 degrees C) on two occasions four hours apart and/or chills. * Unusual pain in the pelvic or vaginal areas. * "Baby Blues" lasting longer than two weeks. If you have any questions or concerns, call your health care practitioner at . FOLLOW-UP VISIT: * Please call the office at to schedule 3 and 6 week examination. It is important you keep this appointment. * It is important for you to make arrangements for either yearly or twice yearly check-ups thereafter.
[2024-10-11 08:57] VITALS: BP 134/83; PULSE 72; RESP 16; O2SAT 96
[2024-10-12 09:37] LABS: Fentanyl, Urine 1.2 ng/mL (<0.5); Marijuana Quant, GCMS Urine 18 ng/mL (<5); Norfentanyl, Urine NEGATIVE ng/mL (<0.5); medMATCH Fentanyl, Urine DNR; medMATCH Norfentanyl, Urine DNR
== END 2024-10-11 11:00 | disposition home or self-care (01) | DRG 807 ==
LOC: OPB 23:24 → 4S1 23:25 → 4E2 10-09 15:32